=== PATIENT | male | born 1950 | race Caucasian/White ===

== ENCOUNTER → 2019-11-14 10:56 | Outpatient (BNVA) | payer MEDICARE, MEDICAID, SELFPAY | PROVIDERS: Family Provider Internal Medicine; PCP Nurse Practitioner; Visit Provider Specialist | DX: Z48.89 Encounter for other specified surgical aftercare (principal); S82.401A Unspecified fracture of shaft of right fibula, initial encounter for closed fracture; X58.XXXA Exposure to other specified factors, initial encounter | CPT/HCPCS: 73610 ==

== ENCOUNTER → 2020-04-16 14:35 | Outpatient (BNVA) | payer MEDICARE, SELFPAY | PROVIDERS: Family Provider Internal Medicine; PCP Nurse Practitioner; Visit Provider Nurse Practitioner Family | DX: E78.5 Hyperlipidemia, unspecified (principal); I10 Essential (primary) hypertension; Z87.39 Personal history of other diseases of the musculoskeletal system and connective tissue; E11.40 Type 2 diabetes mellitus with diabetic neuropathy, unspecified; E11.65 Type 2 diabetes mellitus with hyperglycemia; Z79.4 Long term (current) use of insulin; E78.2 Mixed hyperlipidemia; M25.571 Pain in right ankle and joints of right foot; G89.29 Other chronic pain | CPT/HCPCS: 80053; 80061; 83036; 84550; 85025 ==

== ENCOUNTER → 2020-07-06 10:01 | Outpatient (BNVA) | payer MEDICARE, MEDICAID, SELFPAY | PROVIDERS: Family Provider Internal Medicine; PCP Nurse Practitioner; Visit Provider Nurse Practitioner | DX: E11.40 Type 2 diabetes mellitus with diabetic neuropathy, unspecified (principal); E11.65 Type 2 diabetes mellitus with hyperglycemia; E78.2 Mixed hyperlipidemia; I10 Essential (primary) hypertension; J30.2 Other seasonal allergic rhinitis; Z79.4 Long term (current) use of insulin; R39.11 Hesitancy of micturition; Z87.39 Personal history of other diseases of the musculoskeletal system and connective tissue | CPT/HCPCS: 80053; 80061; 81003; 83036; 85025 ==

== ENCOUNTER 2020-07-11 07:18 | Outpatient (CLI) | payer MEDICARE, MEDICAID, SELFPAY ==
--- NOTE | 2020-07-11 07:15 | US_ITS ---
WS: [id number] ULTRASOUND RENAL TECHNIQUE: Ultrasound examination of both kidneys. CLINICAL INFORMATION: Hematuria COMPARISON: None. FINDINGS: RIGHT: Right kidney cyst measuring 2.0 cm Right kidney is normal in size and appearance. Echogenicity: Normal. Cortical thickness: 1.7 cm; Normal. Hydronephrosis: None. Perinephric fluid: None. Right kidney measures: 13.2 cm x 7.3 cm x 8.4 cm. LEFT: Left kidney removed. Normal bladder. US/US renal BI with bladder IMPRESSION: 1. Left kidney removed. 2. Right kidney cyst measuring 2.0 x 1.3 x 2.0 cm 3. Normal bladder.
== END 2020-07-11 07:19 | disposition home or self-care (01) ==
LOC: US 07:18
PROVIDERS: PCP Nurse Practitioner; Visit Provider Nurse Practitioner
DX: R31.9 Hematuria, unspecified (principal); Z90.5 Acquired absence of kidney; N28.1 Cyst of kidney, acquired
CPT/HCPCS: 76770; 76857

== ENCOUNTER → 2020-07-23 15:43 | Outpatient (BNVA) | payer MEDICARE, MEDICAID, SELFPAY | PROVIDERS: PCP Nurse Practitioner; Visit Provider Nurse Practitioner Family | DX: R39.15 Urgency of urination (principal); C61 Malignant neoplasm of prostate; R31.0 Gross hematuria | CPT/HCPCS: 80053; 81001; 84153; 88112 ==

== ENCOUNTER 2020-08-08 10:40 | Outpatient (CLI) | payer MEDICARE, MEDICAID, SELFPAY ==
--- NOTE | 2020-08-08 11:17 | CT_ITS ---
WS: [id number] CT ABDOMEN AND PELVIS WITH AND WITHOUT CONTRAST HISTORY: GROSS HEMATURIA TECHNIQUE: Unenhanced 5 mm axial imaging first performed through the abdomen. Post contrast imaging t hrough the abdomen and pelvis. Oral contrast has not been provided. Sagittal and coronal reformats a re submitted. All CT scans at use at least one of these dose optimization tech niques: automated exposure control; mA and/or kV adjustment per patient size (includes targeted exams where dose is matched to clinical indication); or iterative reconstruction. CONTRAST: Visipaque 320; 95 mL IV. DLP: 2364.05 mGycm COMPARISON: 04/20/2016 Lung bases are clear. Normal size heart. Small hiatal hernia. Normal size liver. Mild surface lobulation. No mass. Normal gallbladder. Spleen is top normal size at 12 cm. Mild atrophy and fatty replacement of the pancreas. No adrenal mass. There are numerous varic es near the splenic hilum and around the pancreas. Portal vein appears patent. Caudate lobe is slight ly enlarged also. RIGHT kidney is low normal size at 10.8 cm. Ill-defined low-attenuation focus in the mid RIGHT kidney measures 2.3 cm. Hounsfield units are elevated. There is only very minimal increase in the Hounsfiel d units after injection of the contrast. There are additional subcentimeter too small to characterize hypodensities in the cortex. There is no hydronephrosis or obstruction of the kidney. Prior LEFT nephrectomy. No recurrent mass at the LEFT renal bed. Mild atherosclerosis aorta. Ectatic dilatation RIGHT common iliac artery. No ascites or adenopathy. No GI tract obstruction. Urinary bladder is well distended. There is mild diffuse wall thickening. On the delayed imaging there is a very mild blush-like area of enhancement in the LEFT lateral bladder measuring 2.8 x 1.3 cm. Minimal prominence of the prostate gland. There are innumerable small sclerotic foci within the visualized lumbar and thoracic vertebral bodies and within the ribs and the pelvis. Also sclerotic foci proximal femora. CT/CT abdomen pelvis wo/w [id number] IMPRESSION: 1. Status post LEFT nephrostomy. No recurrent mass or adenopathy in the renal bed. 2. Poorly visualized low-attenuation mass in the RIGHT kidney measures 2.3 cm. Probably representing a complex cyst. Recent ultrasound also demonstrated a cy st. 3. Innumerable sclerotic foci throughout the visualized bones suspicious for m etastatic disease. Consider bone scan imaging follow-up. 4. Seen only on the delayed imaging is an area of blush-like enhancement in th e LEFT posterior urinary bladder. Recommend cystoscopy for evaluation of the bl adder neoplasm. Otherwise mild diffuse bladder wall thickening is probably due to cystitis. 5. Cirrhosis and top normal size spleen.
[2020-08-08] MEDS: iodixanol 320 mg/mL 100mL Btl IV (11:46)
== END 2020-08-08 10:41 | disposition home or self-care (01) ==
LOC: RAD 10:42 → RADWPI 11:16
PROVIDERS: PCP Nurse Practitioner; Visit Provider Nurse Practitioner Family
DX: R31.0 Gross hematuria (principal); N28.89 Other specified disorders of kidney and ureter; K74.69 Other cirrhosis of liver; C61 Malignant neoplasm of prostate
CPT/HCPCS: 74178; 81001; Q9967

== ENCOUNTER 2020-08-17 08:12 | Outpatient (CLI) | payer MEDICARE, MEDICAID, SELFPAY ==
--- NOTE | 2020-08-17 08:21 | NM_ITS ---
WS: [id number] NUCLEAR MEDICINE WHOLE BODY BONE SCAN HISTORY: PROSTATE CANCER COMPARISON: 11/13/[address] 08/08/2020. TECHNIQUE: The patient was injected with 26.1 mCi of Technetium 99m HDP and serial whole-body scintig jaye have been performed with anterior and posterior images. There are numerous tiny foci of increased uptake in the ribs, thoracic and lumbar spines and pelvis. These correspond to the findings on the recent CT of osteoblastic metastatic bone disease. More focal increased uptake in the inferior RIGHT scapula. Very focal intense uptake in the LEFT clavicular hea d. No definite uptake involving the femoral necks or heads. Moderate degenerative changes at the SC joints and glenohumeral joints and ankle joints. NM/NM bone scan whole body* [id number] IMPRESSION: Moderate osteoblastic metastatic bone disease. Most significant involvement thr oughout the spine, ribs and pelvis. Intense uptake in the LEFT clavicular head and inferior RIGHT scapula. Corresponds to the findings seen on the recent CT o f 08/08/2020.
== END 2020-08-17 08:13 | disposition home or self-care (01) ==
LOC: RAD 08:16
PROVIDERS: PCP Nurse Practitioner; Visit Provider Urology
DX: C61 Malignant neoplasm of prostate (principal)
CPT/HCPCS: 78306; A9561

== ENCOUNTER 2020-08-29 09:52 | Outpatient (CLI) | payer MEDICARE, MEDICAID, SELFPAY ==
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
[2020-08-29 15:06] LABS: Basophils % 0.2 %; Eosinophils # 0.1 10^3/uL (0.0-0.8); Eosinophils % 1.8 %; Hematocrit 38.8 % (42.0-52.0); Hemoglobin 12.2 g/dL (11.7-16.6); Lymphocytes # 0.9 10^3/uL (0.8-4.8); Lymphocytes % 19.1 %; Mean Corpuscular HGB Conc 31.4 g/dL (30.0-36.0); Mean Corpuscular Hemoglobin 30.2 pg (28.0-34.0); Mean Platelet Volume 10.9 fL (7.4-10.4); Monocytes # 0.6 10^3/uL (0.2-0.9); Monocytes % 12.7 %; Nucleated Red Blood Cells % 0 %; Platelet Count 146 10^3/cmm (130-400); Red Blood Count 4.04 10^6/uL (4.1-5.3); Red Cell Distribution Width 13.8 % (12.1-15.1); White Blood Count 4.6 10^3/uL (4.0-10.0)
[2020-08-29 15:15] LABS: Alanine Aminotransferase 28 U/L (0-41); Albumin Level 3.2 g/dL (3.5-5.2); Alkaline Phosphatase 293 IU/L (40-130); Anion Gap 12.1 (5-19); Aspartate Amino Transferase 48 U/L (0-40); Blood Urea Nitrogen 17 mg/dL (8-23); Calcium 8.9 mg/dL (8.5-10.5); Carbon Dioxide 30 mmol/L (22-29); Chloride 95 mmol/L (98-107); Globulin 3.6 g/dL (1.3-4.6); Glucose 97 mg/dL (65-115); Osmolality Calculated 275 mOsm/kg (285-295); Potassium 5.1 mmol/L (3.5-5.1); Sodium 132 mmol/L (136-145); Total Bilirubin 0.7 mg/dL (0.15-1.2); Total Protein 6.8 g/dL (6.6-8.7)
== END 2020-08-29 09:53 | disposition home or self-care (01) ==
LOC: ONCMED 09:56
PROVIDERS: PCP Nurse Practitioner; Visit Provider Internal Medicine Medical Oncology
DX: C61 Malignant neoplasm of prostate (principal); C79.51 Secondary malignant neoplasm of bone; D69.6 Thrombocytopenia, unspecified; I10 Essential (primary) hypertension; E78.5 Hyperlipidemia, unspecified; E11.9 Type 2 diabetes mellitus without complications; I25.10 Atherosclerotic heart disease of native coronary artery without angina pectoris; M47.9 Spondylosis, unspecified; E66.9 Obesity, unspecified; R31.9 Hematuria, unspecified; R33.9 Retention of urine, unspecified; Z90.5 Acquired absence of kidney; Z90.49 Acquired absence of other specified parts of digestive tract; Z87.891 Personal history of nicotine dependence; Z95.1 Presence of aortocoronary bypass graft; Z96.0 Presence of urogenital implants; Z87.828 Personal history of other (healed) physical injury and trauma; R09.02 Hypoxemia; R91.8 Other nonspecific abnormal finding of lung field; E04.2 Nontoxic multinodular goiter; R16.2 Hepatomegaly with splenomegaly, not elsewhere classified
CPT/HCPCS: 36415; 71275; 80053; 82565; 84520; 85025; 99215; Q9967

== ENCOUNTER 2020-08-29 12:54 | Outpatient (CLI) | payer MEDICARE, SELFPAY ==
--- NOTE | 2020-08-29 13:04 | CT_ITS ---
WS: [id number] CTA OF THE CHEST WITH PULMONARY EMBOLISM PROTOCOL TECHNIQUE: High-resolution contrast enhanced CTA of the chest with coronal and sagittal reformatted i mages with pulmonary embolism protocol. MIP images are also reviewed. CLINICAL INFORMATION: HYPOXIA, MALIGNANT NEOPLASM OF PROSTATE, THROMBOCYTOPENIA COMPARISON: Bone scan August 17, [address] abdomen pelvis August 08, 2020 DLP: 826.[address] scans at [facility] use at least one of these dose optimization techniques: automat ed exposure control; mA and/or kV adjustment per patient size (includes targeted exams where dose is matched to clinical indication); or iterative reconstruction. FINDINGS: Diffuse blastic metastasis throughout the visualized bony structures as Seen on the recent studies. Proximal main pulmonary arteries are normal. Segmental and subsegmental pulmonary arteries appear pat ent. No filling defects to indicate pulmonary embolus. Normal caliber thoracic aorta. Aortic calcific ation. Coronary calcification. Low-attenuation right thyroid nodules the largest measuring 12 mm. No mediastinal or hilar lymphadenopathy. No axillary lymphadenopathy. Patchy groundglass infiltrates in the bilateral lower lobes, lingula, and both upper lobes. Recommend correlation for viral pneumonitis. No pleural fluid or focal consolidation. Adrenal glands are normal. Hepatomegaly. Cirrhotic configuration to the liver. Splenomegaly. CT/CT angio chest PE protcl [id number] IMPRESSION: 1. No evidence for pulmonary embolus. 2. Hazy groundglass infiltrates within both lungs as described above can be se en with viral pneumonia. Recommend clinical correlation. 3. Small right thyroid nodules largest measuring 12 mm. This can be followed u p with ultrasound. 4. No mediastinal or hilar lymphadenopathy. 5. Hepatomegaly and splenomegaly. Slightly cirrhotic [id number] to the josephine er capsule. 6. Diffuse blastic osseous metastasis throughout the visualized bony structure s and spine compatible with findings seen on the recent bone scan
[2020-08-29 14:00] LABS: Blood Urea Nitrogen 15 mg/dL (8-23)
[2020-08-29] MEDS: iodixanol 320 mg/mL 100mL Btl IV (14:14)
== END 2020-08-29 12:55 | disposition home or self-care (01) ==
LOC: RADWPI 12:58
PROVIDERS: PCP Nurse Practitioner; Visit Provider Internal Medicine Medical Oncology
DX: C61 Malignant neoplasm of prostate (principal); R09.02 Hypoxemia; D69.6 Thrombocytopenia, unspecified; R91.8 Other nonspecific abnormal finding of lung field; E04.2 Nontoxic multinodular goiter; R16.2 Hepatomegaly with splenomegaly, not elsewhere classified
CPT/HCPCS: 71275; 82565; 84520; Q9967

== ENCOUNTER 2020-09-20 05:51 | Outpatient (CLI) | payer MEDICARE, MEDICAID, SELFPAY ==
[2020-09-20 15:31] LABS: Basophils % 0.4 %; Eosinophils # 0.1 10^3/uL (0.0-0.8); Eosinophils % 2.1 %; Hematocrit 37.9 % (42.0-52.0); Hemoglobin 11.9 g/dL (11.7-16.6); Lymphocytes # 0.6 10^3/uL (0.8-4.8); Lymphocytes % 21.1 %; Mean Corpuscular HGB Conc 31.4 g/dL (30.0-36.0); Mean Corpuscular Hemoglobin 30.7 pg (28.0-34.0); Mean Corpuscular Volume 97.9 fL (80-94); Mean Platelet Volume 12.4 fL (7.4-10.4); Monocytes # 0.3 10^3/uL (0.2-0.9); Monocytes % 10.4 %; Neutrophils # 1.84 10^3/uL (1.8-7.7); Neutrophils % 65.6 %; Nucleated Red Blood Cells % 0 %; Platelet Count 38 10^3/cmm (130-400); Red Blood Count 3.87 10^6/uL (4.1-5.3); Red Cell Distribution Width 14.6 % (12.1-15.1); White Blood Count 2.8 10^3/uL (4.0-10.0)
[2020-09-20] MEDS: lidocaine 1% INJ 20 mL INJECTION (15:35)
[2020-09-20] MEDS: goserelin acetate 10.8 mg Implant IM (15:35)
[2020-09-20 15:51] LABS: Alanine Aminotransferase 31 U/L (0-41); Albumin Level 3.5 g/dL (3.5-5.2); Alkaline Phosphatase 278 IU/L (40-130); Anion Gap 10.6 (5-19); Aspartate Amino Transferase 36 U/L (0-40); Blood Urea Nitrogen 14 mg/dL (8-23); Calcium 9.9 mg/dL (8.5-10.5); Carbon Dioxide 32 mmol/L (22-29); Chloride 98 mmol/L (98-107); Globulin 3.3 g/dL (1.3-4.6); Glucose 144 mg/dL (65-115); Osmolality Calculated 285 mOsm/kg (285-295); Potassium 4.6 mmol/L (3.5-5.1); Sodium 136 mmol/L (136-145); Total Bilirubin 0.5 mg/dL (0.15-1.2); Total Protein 6.8 g/dL (6.6-8.7)
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
== END 2020-09-20 05:52 | disposition home or self-care (01) ==
LOC: ONCMED 05:53
PROVIDERS: PCP Nurse Practitioner; Visit Provider Nurse Practitioner
DX: C61 Malignant neoplasm of prostate (principal); C79.51 Secondary malignant neoplasm of bone; D69.6 Thrombocytopenia, unspecified; K74.60 Unspecified cirrhosis of liver; D73.1 Hypersplenism; R97.21 Rising PSA following treatment for malignant neoplasm of prostate; I10 Essential (primary) hypertension; E78.5 Hyperlipidemia, unspecified; E11.9 Type 2 diabetes mellitus without complications; I25.10 Atherosclerotic heart disease of native coronary artery without angina pectoris; E66.9 Obesity, unspecified; M47.9 Spondylosis, unspecified; Z90.5 Acquired absence of kidney; Z79.818 Long term (current) use of other agents affecting estrogen receptors and estrogen levels; Z92.3 Personal history of irradiation
CPT/HCPCS: 80053; 84153; 85025; 96372; 96402; 99214; J9202

== ENCOUNTER → 2020-10-01 08:59 | Outpatient (BNVA) | payer MEDICARE, MEDICAID, SELFPAY | PROVIDERS: PCP Nurse Practitioner; Visit Provider Nurse Practitioner | DX: E11.65 Type 2 diabetes mellitus with hyperglycemia (principal); Z79.4 Long term (current) use of insulin; I10 Essential (primary) hypertension; E78.2 Mixed hyperlipidemia | CPT/HCPCS: 80053; 80061; 83036; 85025 ==

== ENCOUNTER 2020-10-18 09:01 | Outpatient (CLI) | payer MEDICARE, MEDICAID, SELFPAY ==
[2020-10-18 09:45] LABS: Basophils % 0.8 %; Eosinophils # 0.1 10^3/uL (0.0-0.8); Eosinophils % 2.4 %; Hemoglobin 11.4 g/dL (11.7-16.6); Lymphocytes % 25.8 %; Mean Corpuscular HGB Conc 31.7 g/dL (30.0-36.0); Mean Corpuscular Hemoglobin 30.8 pg (28.0-34.0); Mean Corpuscular Volume 97.3 fL (80-94); Mean Platelet Volume 11.8 fL (7.4-10.4); Monocytes # 0.4 10^3/uL (0.2-0.9); Monocytes % 11.8 %; Neutrophils # 2.19 10^3/uL (1.8-7.7); Neutrophils % 58.9 %; Nucleated Red Blood Cells % 0 %; Platelet Count 63 10^3/cmm (130-400); Red Cell Distribution Width 14.8 % (12.1-15.1); White Blood Count 3.7 10^3/uL (4.0-10.0)
[2020-10-18 10:03] LABS: Alanine Aminotransferase 34 U/L (0-41); Albumin Level 3.3 g/dL (3.5-5.2); Alkaline Phosphatase 248 IU/L (40-130); Anion Gap 13.7 (5-19); Aspartate Amino Transferase 40 U/L (0-40); Blood Urea Nitrogen 16 mg/dL (8-23); Calcium 9.6 mg/dL (8.5-10.5); Carbon Dioxide 23 mmol/L (22-29); Chloride 102 mmol/L (98-107); Globulin 3.2 g/dL (1.3-4.6); Glucose 106 mg/dL (65-115); Osmolality Calculated 280 mOsm/kg (285-295); Potassium 4.7 mmol/L (3.5-5.1); Sodium 134 mmol/L (136-145); Total Bilirubin 0.5 mg/dL (0.15-1.2); Total Protein 6.5 g/dL (6.6-8.7)
== END 2020-10-18 09:02 | disposition home or self-care (01) ==
LOC: ONCMED 09:04
PROVIDERS: PCP Nurse Practitioner; Visit Provider Nurse Practitioner
DX: C61 Malignant neoplasm of prostate (principal); C79.51 Secondary malignant neoplasm of bone; D69.6 Thrombocytopenia, unspecified
CPT/HCPCS: 80053; 84153; 85025

== ENCOUNTER 2020-10-22 05:49 | Outpatient (CLI) | payer MEDICARE, MEDICAID, SELFPAY ==
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
== END 2020-10-22 05:50 | disposition home or self-care (01) ==
LOC: ONCMED 05:51
PROVIDERS: PCP Nurse Practitioner; Visit Provider Nurse Practitioner
DX: C61 Malignant neoplasm of prostate (principal); R33.9 Retention of urine, unspecified; Z96.0 Presence of urogenital implants; Z87.891 Personal history of nicotine dependence; I10 Essential (primary) hypertension; E78.5 Hyperlipidemia, unspecified; D69.6 Thrombocytopenia, unspecified; D73.1 Hypersplenism; K74.60 Unspecified cirrhosis of liver; E11.42 Type 2 diabetes mellitus with diabetic polyneuropathy; I25.10 Atherosclerotic heart disease of native coronary artery without angina pectoris; M47.9 Spondylosis, unspecified; Z79.818 Long term (current) use of other agents affecting estrogen receptors and estrogen levels; Z79.899 Other long term (current) drug therapy; Z90.5 Acquired absence of kidney; Z87.39 Personal history of other diseases of the musculoskeletal system and connective tissue; Z87.828 Personal history of other (healed) physical injury and trauma; Z95.5 Presence of coronary angioplasty implant and graft
CPT/HCPCS: 99214

== ENCOUNTER → 2020-11-05 08:50 | Outpatient (BNVA) | payer MEDICARE, MEDICAID, SELFPAY | PROVIDERS: PCP Nurse Practitioner; Visit Provider Internal Medicine Medical Oncology | DX: C79.51 Secondary malignant neoplasm of bone (principal); D69.59 Other secondary thrombocytopenia; C61 Malignant neoplasm of prostate | CPT/HCPCS: 80053; 84153; 85025 ==

== ENCOUNTER 2020-11-14 08:57 | Outpatient (CLI) | payer MEDICARE, MEDICAID, SELFPAY ==
--- NOTE | 2020-11-17 14:28 | ONC FU_ITS ---
Dr. Paiz Patient Follow-Up Note Patient: Rj Robbins Unit #: [id number]: 1950 Dicatated By: Ronen Paiz M.D.Date of Visit:Nov 14, 2020 Onc Med Follow-up/Prog Note Chief Complaint: Prostate cancer. History of Present Illness: This is a 70 year-old man with [place] score 7 prostatic adenocarcinoma, stage IIA (T2a, N0, M0) at initial diagnosis in 2008, but with subsequent progression to stage IVB (M1b). In 2008 he was found to have prostate cancer. By clinical evaluation he had stage IIA disease. He was given androgen deprivation therapy together with definitive radiation, which he completed in May 2009 to a total dose of 7560 cGy. I was not able to verify the duration of the androgen deprivation. I had seen him initially in March 2016 in regard to mild thrombocytopenia. I was not able to determine a specific cause for it. As he was not overtly symptomatic with it, had just recommended observation/expectant management. During follow-up he was noted to have a rising PSA level. As of his follow-up visit in October 2017 it had increased to 12.00 ng/mL. At that point I had recommended restaging with CT abdomen/pelvis and bone scan, but those studies were never completed, and he was then lost to follow-up. In July 2020 he had follow-up at Dr. Callahan's office with new onset of hematuria. He had subsequently developed urinary retention, requiring placement of indwelling Robles catheter. His PSA level was noted to have further increased to 19.340 ng/mL. CT abdomen/pelvis on 08/08/2020 showed evidence of previous left nephrectomy with poorly visualized low-attenuation mass in the right kidney measuring 2.3 cm. This was thought to most likely represent a complex cyst. Innumerable sclerotic foci were noted throughout the visualized bones suspicious for metastatic disease. An area of blush-like enhancement was noted in the left posterior urinary bladder. There was mild surface lobulation of the liver, consistent with cirrhosis. The spleen was noted to be at top normal size at 12 cm. On his outpatient cystoscopy the prostate did not appear overtly enlarged. His bladder neck was high and it was noted to be very tight. The bladder was noted to be heavily trabeculated with cellule formation and high-pressure configuration. Further evaluation with bone scan on 08/17/2020 showed moderate osteoblastic metastatic bone disease with the most significant involvement noted throughout the spine, ribs, and pelvis. There was also intense uptake in the left clavicular head and inferior right scapula. I had seen him initially on 08/29/2020. With clinical evidence of metastatic prostate cancer, androgen deprivation therapy was recommended, and he started bicalutamide 50 mg daily. He then returned on 09/20/2020 for his initial injection of Zoladex. At that point his PSA level had declined to 4.130 ng/mL. Subsequent to that visit, his antiandrogen therapy was transitioned from bicalutamide to enzalutamide 160 mg daily. His other medical illnesses include hypertension, hyperlipidemia, type II diabetes, and coronary artery disease. He also has degenerative arthritis/degenerative disease of the spine and gout. He has a previous history of chewing tobacco, but he is a nonsmoker. He has had at least moderate alcohol use, but he quit drinking more than 5 years ago. INTERIM HISTORY: He is seen for a follow-up visit. He has been feeling good generally. Thus far he seems to be tolerating the enzalutamide with no adverse effects. He has pretty good energy, and he is able to do light work. ECOG score is 1. Appetite is good. He has not had fever. He has had night sweating a few times. He really does not complain of having hot flashes. He says his nose runs a lot. He does not complain of shortness of breath, cough, or chest pain. He had one episode of diarrhea. He has no other GI complaints. He says his bladder function has improved significantly and he is now having to use his catheter just occasionally. He has chronic back pain and he sometimes has pain in his right hip. He complains of having numbness in his right foot. Medications: Allopurinol 1 (300 mg) Tablet Oral daily, Atorvastatin Calcium 1 Tablet (of 40 mg) Oral daily, Byetta 5 MCG Pen (5 mcg/0.02mL) Subcutaneous b.i.d., Camphor (3.1 %) Cream Topical t.i.d. PRN, Cetirizine HCl 1 Tablet (of 10 mg) Oral daily PRN, Cymbalta 1 (20 mg) Capsule Delayed Release Particles Oral b.i.d., Flomax 1 (0.4 mg) Capsule Oral at bedtime, Furosemide 0.5 Tablet (of 20 mg) Oral daily on Every Other Day, Icosapent Ethyl 1 Tablet (of 1 g) Capsule Oral b.i.d., Imdur 1 (60 mg) Tablet SR 24 HR Oral b.i.d., Levemir 70 Units (of 100 Units/mL) Subcutaneous daily, Lisinopril 1 (10 mg) Tablet Oral b.i.d., Metoprolol Tartrate 1 (100 mg) Tablet Oral b.i.d., Nitrostat 1 (0.4 mg) Tablet, sublingual Sublingual PRN, oxyCODONE HCl 1 Tablet (of 5 mg) Oral q 8 hours PRN, Tamsulosin HCl 1 Tablet (of 0.4 mg) Capsule Oral b.i.d. Allergies: Aldactazide and Ibuprofen. Vital Signs: Performed on Nov 14, 2020 09:18 Height - 73.00 in Weight - 273.6 lbs (LOW) BSA - 2.46 sq.m BMI - 36.10 (HIGH) Temperature - 97.2 F (LOW) Pulse - 85 /min Respiration - 18 /min BP - 142/83 mm(hg) (HIGH) O2 Sat - 93 % (LOW) Pain - 2 Physical Examination: Constitutional - He looks pretty good generally, though he does have somewhat limited mobility, Eyes - Sclerae nonicteric. Conjunctivae clear, ENMT - No lesions noted in the oral cavity, Hematologic/Lymphatic - No cervical, clavicular, or axillary adenopathy, Respiratory - Lungs are clear with diminished air movement bilaterally, Cardiovascular - Heart rhythm is regular. There is no murmur, gallop, or rub noted, Abdomen - Moderately distended. Liver and spleen are not enlarged. There is no abdominal mass or ascites noted and there is no inguinal adenopathy, Extremities - Mild edema, Neurologic - No focal neurologic deficits noted. Lab/Imaging: Test performed on Nov 05, 2020 08:50 Glucose 270 mg/dL BUN 16 mg/dL Creatinine 1.0 mg/dL Cr Clearance (Est) 118.75 mL/min Sodium 140 mmol/L Potassium 4.5 mmol/L Chloride 98 mmol/L CO2 32 mmol/L Calcium 9.5 mg/dL Protein, Total 6.3 g/dL Albumin 3.6 g/dL Globulin 2.7 g/dL Bilirubin, Total 0.5 mg/dL Alkaline Phosphatase 213 IU/L AST (SGOT) 36 IU/L ALT (SGPT) 26 IU/L WBC 3.1 10^9/L RBC 3.82 10^12/L HGB 11.9 g/dL HCT 37.4 % MCV 97.9 fl MCH 312 pg MCHC 31.8 g/dL RDW 14.6 % Platelet Count 65 10^9/L MPV 11.4 fL Neutrophils (Gran) 1.84 10^9/L Lymphocytes 0.8 10^9/L Monocytes 0.4 10^9/L Eosinophils 0.1 10^9/L Basophils 0.0 10^9/L Manual Lymphocytes 25.8 % Manual Monocytes 11.6 % Manual Eosinophils 2.6 % Manual Basophils 0.6 % Historic Problem List: 1. Prostatic adenocarcinoma, [place] score 7, stage IIA at initial diagnosis in 2008. At that time he underwent definitive radiation in combination with short-term androgen deprivation therapy. 2. He was found to have rising PSA level as far back as October 2017. As of August 2020 he was found to have stage IVB disease (M1 b) with CT and bone scan evidence of osteoblastic bony metastatic disease. He also had urinary retention, requiring indwelling Robles catheter. 3. He has fairly longstanding mild to moderately severe thrombocytopenia. At this point it would appear to be most likely due to cirrhosis/hypersplenism. 4. Hypertension. 5. Hyperlipidemia. 6. Type II diabetes. 7. Coronary artery disease with previous angioplasty/stent placement. 8. Obesity. 9. Degenerative arthritis/degenerative disease of the spine. 10. History of gout. 11. He is status post left nephrectomy for traumatic injury. Problems Addressed with this Encounter and Plan: 1. Prostatic adenocarcinoma, [place] score 7, stage IIA at initial diagnosis in 2008. At that time he underwent definitive radiation in combination with short-term androgen deprivation therapy. In August 2020 he was found to have stage IVB disease (M1 b) with CT and bone scan evidence of osteoblastic bony metastatic disease. He began androgen deprivation therapy with bicalutamide and Zoladex. The antiandrogen was subsequently transitioned to enzalutamide. Thus far he has been tolerating the treatment very well, and he does appear to be showing significant response both by PSA level and by clinical evaluation. As such, he will be given Zoladex 10.8 mg today and he will continue enzalutamide at 160 mg daily. He will be scheduled for a follow-up visit in 3 months. 2. Mild to moderately severe thrombocytopenia. It appears to be fairly longstanding and most likely due to cirrhosis/hypersplenism. It can be followed expectantly as long as the platelet count remains stable. Signed By: Ronen Paiz M.D. <<Signature on File>>
== END 2020-11-14 08:58 | disposition home or self-care (01) ==
LOC: ONCMED 09:02
PROVIDERS: PCP Nurse Practitioner; Visit Provider Internal Medicine Medical Oncology
DX: C61 Malignant neoplasm of prostate (principal); C79.51 Secondary malignant neoplasm of bone; R97.20 Elevated prostate specific antigen [PSA]; D69.6 Thrombocytopenia, unspecified; K74.60 Unspecified cirrhosis of liver; D73.1 Hypersplenism; I10 Essential (primary) hypertension; E78.5 Hyperlipidemia, unspecified; E11.59 Type 2 diabetes mellitus with other circulatory complications; I25.10 Atherosclerotic heart disease of native coronary artery without angina pectoris; Z95.5 Presence of coronary angioplasty implant and graft; E66.9 Obesity, unspecified; M47.9 Spondylosis, unspecified; M10.9 Gout, unspecified; Z90.5 Acquired absence of kidney; Z79.899 Other long term (current) drug therapy
CPT/HCPCS: 99214

== ENCOUNTER → 2020-11-15 09:14 | Outpatient (BNVA) | payer MEDICARE, MEDICAID, SELFPAY | PROVIDERS: PCP Nurse Practitioner; Visit Provider Nurse Practitioner | DX: C61 Malignant neoplasm of prostate (principal); C79.51 Secondary malignant neoplasm of bone; D69.59 Other secondary thrombocytopenia | CPT/HCPCS: 80053; 85025 ==

== ENCOUNTER 2020-12-24 10:52 | Outpatient (CLI) | payer MEDICARE, MEDICAID, SELFPAY ==
[2020-12-24 12:23] LABS: Testosterone Total 33.8 ng/dL (193-740)
[2020-12-24 13:56] LABS: Anion Gap 16.2 (5-19); Blood Urea Nitrogen 13 mg/dL (8-23); Calcium 9.9 mg/dL (8.5-10.5); Carbon Dioxide 30 mmol/L (22-29); Chloride 96 mmol/L (98-107); Glucose 243 mg/dL (65-115); Osmolality Calculated 294 mOsm/kg (285-295); Potassium 4.2 mmol/L (3.5-5.1); Sodium 138 mmol/L (136-145)
[2020-12-24] MEDS: lidocaine 1% INJ 20 mL INJECTION (14:10)
[2020-12-24] MEDS: denosumab 120 mg SDV SUBCUT (14:31)
[2020-12-24] MEDS: goserelin acetate 10.8 mg Implant IM (14:33)
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
== END 2020-12-24 10:53 | disposition home or self-care (01) ==
PROVIDERS: PCP Nurse Practitioner; Visit Provider Nurse Practitioner
DX: Z51.12 Encounter for antineoplastic immunotherapy (principal); C61 Malignant neoplasm of prostate; C79.51 Secondary malignant neoplasm of bone; D69.6 Thrombocytopenia, unspecified; K74.60 Unspecified cirrhosis of liver; D73.1 Hypersplenism; Z79.818 Long term (current) use of other agents affecting estrogen receptors and estrogen levels; Z79.899 Other long term (current) drug therapy
CPT/HCPCS: 80048; 84153; 84403; 96372; 96402; 99215; J0897; J9202

== ENCOUNTER → 2021-01-29 09:57 | Outpatient (BNVA) | payer MEDICARE, MEDICAID, SELFPAY | PROVIDERS: PCP Nurse Practitioner; Visit Provider Nurse Practitioner | DX: E11.65 Type 2 diabetes mellitus with hyperglycemia (principal); Z79.4 Long term (current) use of insulin; E78.2 Mixed hyperlipidemia; Z87.39 Personal history of other diseases of the musculoskeletal system and connective tissue; I10 Essential (primary) hypertension; G47.00 Insomnia, unspecified; E11.40 Type 2 diabetes mellitus with diabetic neuropathy, unspecified; J30.2 Other seasonal allergic rhinitis | CPT/HCPCS: 80053; 80061; 83036 ==

== ENCOUNTER 2021-02-18 10:10 | Outpatient (CLI) | payer MEDICARE, MEDICAID, SELFPAY ==
[2021-02-18 10:37] LABS: Basophils % 0.5 %; Eosinophils # 0.1 10^3/uL (0.0-0.8); Eosinophils % 1.2 %; Hematocrit 39.4 % (42.0-52.0); Hemoglobin 12.8 g/dL (11.7-16.6); Lymphocytes # 1.2 10^3/uL (0.8-4.8); Lymphocytes % 27.6 %; Mean Corpuscular HGB Conc 32.5 g/dL (30.0-36.0); Mean Corpuscular Hemoglobin 31.8 pg (28.0-34.0); Mean Platelet Volume 10.4 fL (7.4-10.4); Monocytes # 0.5 10^3/uL (0.2-0.9); Monocytes % 10.7 %; Neutrophils # 2.51 10^3/uL (1.8-7.7); Neutrophils % 59.8 %; Nucleated Red Blood Cells % 0 %; Platelet Count 89 10^3/cmm (130-400); Red Blood Count 4.02 10^6/uL (4.1-5.3); Red Cell Distribution Width 13.3 % (12.1-15.1); White Blood Count 4.2 10^3/uL (4.0-10.0)
[2021-02-18 10:52] LABS: Alanine Aminotransferase 20 U/L (0-41); Albumin Level 3.7 g/dL (3.5-5.2); Alkaline Phosphatase 121 IU/L (40-130); Anion Gap 11.7 (5-19); Aspartate Amino Transferase 35 U/L (0-40); Blood Urea Nitrogen 16 mg/dL (8-23); Calcium 8.5 mg/dL (8.5-10.5); Carbon Dioxide 31 mmol/L (22-29); Chloride 100 mmol/L (98-107); Globulin 2.9 g/dL (1.3-4.6); Glucose 173 mg/dL (65-115); Osmolality Calculated 291 mOsm/kg (285-295); Potassium 4.7 mmol/L (3.5-5.1); Sodium 138 mmol/L (136-145); Total Bilirubin 0.7 mg/dL (0.15-1.2); Total Protein 6.6 g/dL (6.6-8.7)
== END 2021-02-18 10:11 | disposition home or self-care (01) ==
LOC: ONCMED 10:15
PROVIDERS: PCP Nurse Practitioner; Visit Provider Nurse Practitioner
DX: C61 Malignant neoplasm of prostate (principal); C79.51 Secondary malignant neoplasm of bone; D69.6 Thrombocytopenia, unspecified
CPT/HCPCS: 80053; 85025

== ENCOUNTER 2021-02-25 06:23 | Outpatient (CLI) | payer MEDICARE, MEDICAID, SELFPAY ==
[2021-02-25] MEDS: denosumab 120 mg SDV SUBCUT (09:05)
== END 2021-02-25 06:24 | disposition home or self-care (01) ==
LOC: ONCMED 06:27
PROVIDERS: PCP Nurse Practitioner; Visit Provider Internal Medicine Medical Oncology
DX: Z51.11 Encounter for antineoplastic chemotherapy (principal); C61 Malignant neoplasm of prostate; C79.51 Secondary malignant neoplasm of bone; D69.6 Thrombocytopenia, unspecified; Z79.899 Other long term (current) drug therapy
CPT/HCPCS: 96372; J0897

== ENCOUNTER 2021-03-26 10:50 | Outpatient (CLI) | payer MEDICARE, MEDICAID, SELFPAY ==
[2021-03-26 11:36] LABS: Basophils % 0.5 %; Eosinophils # 0.1 10^3/uL (0.0-0.8); Eosinophils % 1.6 %; Hematocrit 38.3 % (42.0-52.0); Hemoglobin 12.6 g/dL (11.7-16.6); Lymphocytes # 1.1 10^3/uL (0.8-4.8); Lymphocytes % 29.2 %; Mean Corpuscular HGB Conc 32.9 g/dL (30.0-36.0); Mean Corpuscular Hemoglobin 31.8 pg (28.0-34.0); Mean Corpuscular Volume 96.7 fL (80-94); Mean Platelet Volume 10.5 fL (7.4-10.4); Monocytes # 0.5 10^3/uL (0.2-0.9); Monocytes % 11.7 %; Neutrophils # 2.17 10^3/uL (1.8-7.7); Neutrophils % 56.7 %; Nucleated Red Blood Cells % 0 %; Platelet Count 70 10^3/cmm (130-400); Red Blood Count 3.96 10^6/uL (4.1-5.3); Red Cell Distribution Width 12.9 % (12.1-15.1); White Blood Count 3.8 10^3/uL (4.0-10.0)
[2021-03-26 12:27] LABS: Testosterone Total 23.6 ng/dL (193-740)
[2021-03-26 12:38] LABS: Alanine Aminotransferase 17 U/L (0-41); Albumin Level 3.8 g/dL (3.5-5.2); Alkaline Phosphatase 105 IU/L (40-130); Anion Gap 16.4 (5-19); Aspartate Amino Transferase 24 U/L (0-40); Blood Urea Nitrogen 21 mg/dL (8-23); Calcium 9.2 mg/dL (8.5-10.5); Carbon Dioxide 25 mmol/L (22-29); Chloride 101 mmol/L (98-107); Globulin 2.8 g/dL (1.3-4.6); Glucose 163 mg/dL (65-115); Osmolality Calculated 293 mOsm/kg (285-295); Potassium 4.4 mmol/L (3.5-5.1); Sodium 138 mmol/L (136-145); Total Bilirubin 0.7 mg/dL (0.15-1.2); Total Protein 6.6 g/dL (6.6-8.7)
[2021-03-26] MEDS: lidocaine 1% INJ 20 mL INJECTION (14:10)
[2021-03-26] MEDS: goserelin acetate 10.8 mg Implant SUBCUT (14:25)
[2021-03-26] MEDS: denosumab 120 mg SDV SUBCUT (14:27)
--- NOTE | 2021-03-30 11:39 | ONC FU_ITS ---
Dr. Piaz Patient Follow-Up Note Patient: Rj Robbins Unit #: [id number]: [id number] Dicatated By: Ronen Paiz M.D.Date of Visit:March 26, 2021 Onc Med Follow-up/Prog Note Chief Complaint: Prostate cancer. History of Present Illness: This is a 71 year-old man with Martha score 7 prostatic adenocarcinoma, stage IIA (T2a, N0, M0) at initial diagnosis in 2008, but with subsequent progression to stage IVB (M1b). In 2008 he was found to have prostate cancer. By clinical evaluation he had stage IIA disease. He was given androgen deprivation therapy together with definitive radiation, which he completed in May 2009 to a total dose of 7560 cGy. I was not able to verify the duration of the androgen deprivation. I had seen him initially in March 2016 in regard to mild thrombocytopenia. I was not able to determine a specific cause for it. As he was not overtly symptomatic with it, had just recommended observation/expectant management. During follow-up he was noted to have a rising PSA level. As of his follow-up visit in October 2017 it had increased to 12.00 ng/mL. At that point I had recommended restaging with CT abdomen/pelvis and bone scan, but those studies were never completed, and he was then lost to follow-up. In July 2020 he had follow-up at Dr. Callahan's office with new onset of hematuria. He had subsequently developed urinary retention, requiring placement of indwelling Robles catheter. His PSA level was noted to have further increased to 19.340 ng/mL. CT abdomen/pelvis on 08/08/2020 showed evidence of previous left nephrectomy with poorly visualized low-attenuation mass in the right kidney measuring 2.3 cm. This was thought to most likely represent a complex cyst. Innumerable sclerotic foci were noted throughout the visualized bones suspicious for metastatic disease. An area of blush-like enhancement was noted in the left posterior urinary bladder. There was mild surface lobulation of the liver, consistent with cirrhosis. The spleen was noted to be at top normal size at 12 cm. On his outpatient cystoscopy the prostate did not appear overtly enlarged. His bladder neck was high and it was noted to be very tight. The bladder was noted to be heavily trabeculated with cellule formation and high-pressure configuration. Further evaluation with bone scan on 08/17/2020 showed moderate osteoblastic metastatic bone disease with the most significant involvement noted throughout the spine, ribs, and pelvis. There was also intense uptake in the left clavicular head and inferior right scapula. I had seen him initially on 08/29/2020. With clinical evidence of metastatic prostate cancer, androgen deprivation therapy was recommended, and he started bicalutamide 50 mg daily. He then returned on 09/20/2020 for his initial injection of Zoladex. At that point his PSA level had declined to 4.130 ng/mL. Subsequent to that visit, his antiandrogen therapy was transitioned from bicalutamide to enzalutamide 160 mg daily. He then continued androgen deprivation therapy with Zoladex every 3 months, and during follow-up there was further gradual decline in the PSA level. As of 12/24/2020 it had decreased to 1.510 ng/mL. His other medical illnesses include hypertension, hyperlipidemia, type II diabetes, and coronary artery disease. He also has degenerative arthritis/degenerative disease of the spine and gout. He has a previous history of chewing tobacco, but he is a nonsmoker. He has had at least moderate alcohol use, but he quit drinking more than 5 years ago. INTERIM HISTORY: He is seen for a follow-up visit. He has been feeling fairly good, though he does have some generalized weakness and limited mobility. He is able to do some light work. ECOG score is 1. He has good appetite. He has not had fever or night sweats. He has just occasional hot flashes, and not very much. He complains that his nose runs like crazy. He has a little bit of cough. He has just occasional shortness of breath. He does not complain of chest pain. He has had diarrhea a few times, but lasting only 1 or 2 days. He has no other GI complaints. He says his bladder function is great now. He has chronic back pain, he also has pain in his fingers and in his right ankle. He does not complain of headache. He occasionally has dizziness. He has some numbness/tingling in the right foot. Medications: Allopurinol 1 (300 mg) Tablet Oral daily, Atorvastatin Calcium 1 Tablet (of 40 mg) Oral daily, Byetta 5 MCG Pen (5 mcg/0.02mL) Subcutaneous b.i.d., Camphor (3.1 %) Cream Topical t.i.d. PRN, Cetirizine HCl 1 Tablet (of 10 mg) Oral daily PRN, Cymbalta 1 (20 mg) Capsule Delayed Release Particles Oral b.i.d., Flomax 1 (0.4 mg) Capsule Oral b.i.d., Furosemide 0.5 Tablet (of 20 mg) Oral daily on Every Other Day, Icosapent Ethyl 1 Tablet (of 1 g) Capsule Oral b.i.d., Imdur 1 (60 mg) Tablet SR 24 HR Oral b.i.d., Levemir 70 Units (of 100 Units/mL) Subcutaneous daily, Lisinopril 1 (10 mg) Tablet Oral b.i.d., Metoprolol Tartrate 1 (100 mg) Tablet Oral b.i.d., Nitrostat 1 (0.4 mg) Tablet, sublingual Sublingual PRN, oxyCODONE HCl 1 Tablet (of 5 mg) Oral q 8 hours PRN Allergies: Aldactazide and Ibuprofen. Vital Signs: Performed on March 26, 2021 13:47 Height - 73.00 in Weight - 275 lbs (LOW) BSA - 2.46 sq.m BMI - 36.28 (HIGH) Temperature - 97.5 F (LOW) Pulse - 73 /min Respiration - 18 /min BP - 144/82 mm(hg) (HIGH) O2 Sat - 98 % Pain - 0 Fatigue - 4 Physical Examination: Constitutional - He appears somewhat weak generally, and he has limited mobility, Eyes - Sclerae nonicteric. Conjunctivae clear, ENMT - No lesions noted in the oral cavity, Hematologic/Lymphatic - No cervical, clavicular, or axillary adenopathy, Respiratory - Lungs are clear with diminished air movement bilaterally, Cardiovascular - Heart rhythm is regular. There is no murmur, gallop, or rub noted, Abdomen - Moderately distended. Liver and spleen are not enlarged. There is no abdominal mass or ascites noted and there is no inguinal adenopathy, Extremities - Mild edema, Neurologic - No focal neurologic deficits noted. Lab/Imaging: Test performed on March 26, 2021 11:20 Sodium 138 mmol/L Testosterone, Total 23.6 ng/dL Potassium 4.4 mmol/L Chloride 101 mmol/L CO2 25 mmol/L Anion Gap 16.4 BUN 21 mg/dL Creatinine 0.6 mg/dL Cr Clearance (Est) 193.46 mL/min Glucose 163 mg/dL Osmolality - Calculated 293 mOsm/kg Calcium 9.2 mg/dL Protein, Total 6.6 g/dL Albumin 3.8 g/dL Globulin 2.8 g/dL Bilirubin, Total 0.7 mg/dL ALT (SGPT) 17 U/L AST (SGOT) 24 U/L Alkaline Phosphatase 105 IU/L WBC 3.8 10 3/uL RBC 3.96 10 6/uL HGB 12.6 g/dL HCT 38.3 % MCV 96.7 fL MCH 31.8 pg MCHC 32.9 g/dL RDW 12.9 % Platelet Count 70 10 3/cmm MPV 10.5 fL Neutrophils 2.17 10 3/uL Lymphocytes 1.1 10 3/uL Monocytes 0.5 10 3/uL Eosinophils 0.1 10 3/uL Basophils 0.0 10 3/uL Neutrophil % 56.7 % Lymphocyte % 29.2 % Monocyte % 11.7 % Eosinophil % 1.6 % Basophils % 0.5 % NRBC % 0 % PSA 1.200 ng/mL Problem List: 1. Prostatic adenocarcinoma, Martha score 7, stage IIA at initial diagnosis in 2008. At that time he underwent definitive radiation in combination with short-term androgen deprivation therapy. 2. He was found to have rising PSA level as far back as October 2017. As of August 2020 he was found to have stage IVB disease (M1 b) with CT and bone scan evidence of osteoblastic bony metastatic disease. He also had urinary retention, requiring indwelling Robles catheter. 3. He has fairly longstanding mild to moderately severe thrombocytopenia. At this point it would appear to be most likely due to cirrhosis/hypersplenism. 4. Hypertension. 5. Hyperlipidemia. 6. Type II diabetes. 7. Coronary artery disease with previous angioplasty/stent placement. 8. Obesity. 9. Degenerative arthritis/degenerative disease of the spine. 10. History of gout. 11. He is status post left nephrectomy for traumatic injury. Problems Addressed with this Encounter and Plan: 1. Patient with prostatic adenocarcinoma, Martha score 7, stage IIA at initial diagnosis in 2008. At that time he underwent definitive radiation in combination with short-term androgen deprivation therapy. In August 2020 he was found to have stage IVB disease (M1 b) with CT and bone scan evidence of osteoblastic bony metastatic disease. He began androgen deprivation therapy with bicalutamide and Zoladex. The antiandrogen was subsequently transitioned to enzalutamide. During follow-up he has tolerated the treatment very well, and he has had a good response by PSA level, currently down to 1.200 ng/mL. He will be given Zoladex 10.8 mg today and he will continue enzalutamide at 160 mg daily. He will be scheduled for a follow-up visit in 3 months. 2. He has metastatic bone involvement, and he also has started treatment with denosumab, which he has tolerated well. He will be given denosumab 120 mg by subcutaneous injection today, and those will be continued monthly. 3. He has mild to moderately severe thrombocytopenia. It appears to be fairly longstanding and most likely due to cirrhosis/hypersplenism. It can be followed expectantly as long as the platelet count remains stable. Signed By: Ronen Paiz M.D. <<Signature on File>>
== END 2021-03-26 10:51 | disposition home or self-care (01) ==
PROVIDERS: PCP Nurse Practitioner; Visit Provider Internal Medicine Medical Oncology
DX: Z51.11 Encounter for antineoplastic chemotherapy (principal); C61 Malignant neoplasm of prostate; C79.51 Secondary malignant neoplasm of bone; R97.20 Elevated prostate specific antigen [PSA]; I10 Essential (primary) hypertension; E78.5 Hyperlipidemia, unspecified; E11.59 Type 2 diabetes mellitus with other circulatory complications; I25.10 Atherosclerotic heart disease of native coronary artery without angina pectoris; Z95.5 Presence of coronary angioplasty implant and graft; E66.9 Obesity, unspecified; M47.9 Spondylosis, unspecified; M10.9 Gout, unspecified; Z90.5 Acquired absence of kidney; Z79.818 Long term (current) use of other agents affecting estrogen receptors and estrogen levels
CPT/HCPCS: 36415; 80053; 84153; 84403; 85025; 96372; 96402; 99214; J0897; J9202

== ENCOUNTER 2021-04-25 13:56 | Outpatient (CLI) | payer MEDICARE, MEDICAID, SELFPAY ==
[2021-04-25] MEDS: denosumab 120 mg SDV SUBCUT (15:00)
== END 2021-04-25 13:57 | disposition home or self-care (01) ==
LOC: ONCMED 13:59
PROVIDERS: PCP Nurse Practitioner; Visit Provider Internal Medicine Medical Oncology
DX: Z51.11 Encounter for antineoplastic chemotherapy (principal); C61 Malignant neoplasm of prostate; C79.51 Secondary malignant neoplasm of bone; Z79.899 Other long term (current) drug therapy
CPT/HCPCS: 96372; J0897

== ENCOUNTER → 2021-05-21 10:23 | Outpatient (BNVA) | payer MEDICARE, SELFPAY | PROVIDERS: PCP Nurse Practitioner; Visit Provider Nurse Practitioner | DX: E11.65 Type 2 diabetes mellitus with hyperglycemia (principal); Z79.4 Long term (current) use of insulin; E78.2 Mixed hyperlipidemia; I10 Essential (primary) hypertension; Z87.39 Personal history of other diseases of the musculoskeletal system and connective tissue; J30.2 Other seasonal allergic rhinitis; R82.90 Unspecified abnormal findings in urine; E11.40 Type 2 diabetes mellitus with diabetic neuropathy, unspecified | CPT/HCPCS: 80053; 80061; 81000; 83036; 84443; 87077; 87086; 87184 ==

== ENCOUNTER 2021-05-27 13:55 | Outpatient (CLI) | payer MEDICARE, MEDICAID, SELFPAY ==
[2021-05-27] MEDS: denosumab 120 mg SDV SUBCUT (14:25)
== END 2021-05-27 13:56 | disposition home or self-care (01) ==
LOC: ONCMED 13:57
PROVIDERS: PCP Nurse Practitioner; Visit Provider Internal Medicine Medical Oncology
DX: Z51.11 Encounter for antineoplastic chemotherapy (principal); C79.51 Secondary malignant neoplasm of bone; C61 Malignant neoplasm of prostate; I10 Essential (primary) hypertension; E78.5 Hyperlipidemia, unspecified; E11.9 Type 2 diabetes mellitus without complications; I25.10 Atherosclerotic heart disease of native coronary artery without angina pectoris; Z79.899 Other long term (current) drug therapy; M47.9 Spondylosis, unspecified; E66.9 Obesity, unspecified; Z68.35 Body mass index [BMI] 35.0-35.9, adult
CPT/HCPCS: 96372; J0897

== ENCOUNTER 2021-07-09 13:50 | Outpatient (CLI) | payer MEDICARE, MEDICAID, SELFPAY ==
[2021-07-09 15:05] LABS: Basophils % 0.2 %; Hematocrit 35.3 % (42.0-52.0); Hemoglobin 11.7 g/dL (11.7-16.6); Lymphocytes # 1.2 10^3/uL (0.8-4.8); Lymphocytes % 30.5 %; Mean Corpuscular HGB Conc 33.1 g/dL (30.0-36.0); Mean Corpuscular Hemoglobin 31.7 pg (28.0-34.0); Mean Corpuscular Volume 95.7 fl (80-94); Mean Platelet Volume 11.2 fL (7.4-10.4); Monocytes # 0.4 10^3/uL (0.2-0.9); Monocytes % 10.6 %; Neutrophils # 2.33 10^3/uL (1.8-7.7); Neutrophils % 57.2 %; Nucleated Red Blood Cells % 0 %; Platelet Count 78 10^3/cmm (130-400); Red Blood Count 3.69 10^6/uL (4.1-5.3); White Blood Count 4.1 10^3/uL (4.0-10.0)
[2021-07-09] MEDS: denosumab 120 mg SDV SUBCUT (15:44)
[2021-07-09] MEDS: lidocaine 1% INJ 20 mL INJECTION (15:44)
[2021-07-09] MEDS: goserelin acetate 10.8 mg Implant SUBCUT (15:55)
[2021-07-09 16:11] LABS: Prostate Specific Antigen 0.786 ng/mL (0-4)
[2021-07-09 16:33] LABS: Alanine Aminotransferase 12 U/L (0-41); Albumin Level 3.6 g/dL (3.5-5.2); Alkaline Phosphatase 92 IU/L (40-130); Anion Gap 16.9 (5-19); Aspartate Amino Transferase 21 U/L (0-40); Blood Urea Nitrogen 14 mg/dL (8-23); Calcium 9.3 mg/dL (8.5-10.5); Carbon Dioxide 25 mmol/L (22-29); Chloride 103 mmol/L (98-107); Globulin 2.9 g/dL (1.3-4.6); Glucose 96 mg/dL (65-115); Osmolality Calculated 290 mOsm/kg (285-295); Potassium 4.9 mmol/L (3.5-5.1); Sodium 140 mmol/L (136-145); Total Bilirubin 0.5 mg/dL (0.15-1.2); Total Protein 6.5 g/dL (6.6-8.7)
[2021-07-09 18:01] LABS: Testosterone Total 21.2 ng/dL (193-740)
--- NOTE | 2021-07-10 07:05 | ONC FU_ITS ---
Dr. Paiz Patient Follow-Up Note Patient: Rj Robbins Unit #: [id number]: [id number] Dicatated By: Ronen Paiz M.D.Date of Visit:Jul 09, 2021 Onc Med Follow-up/Prog Note Chief Complaint: Prostate cancer. History of Present Illness: This is a 71 year-old man with Martha score 7 prostatic adenocarcinoma, stage IIA (T2a, N0, M0) at initial diagnosis in 2008. He had subsequent progression to stage IVB (M1b) with development of multiple sites of metastatic bone involvement. In 2008 he was found to have prostate cancer. By clinical evaluation he had stage IIA disease. He was given androgen deprivation therapy together with definitive radiation, which he completed in May 2009 to a total dose of 7560 cGy. I was not able to verify the duration of the androgen deprivation. I had seen him initially in March 2016 in regard to mild thrombocytopenia. I was not able to determine a specific cause for it. As he was not overtly symptomatic with it, I had just recommended observation/expectant management. During follow-up he was noted to have a rising PSA level. As of his follow-up visit in October 2017 it had increased to 12.00 ng/mL. At that point I had recommended restaging with CT abdomen/pelvis and bone scan, but those studies were never completed, and he was then lost to follow-up. In July 2020 he had follow-up at Dr. Callahan's office with new onset of hematuria. He had subsequently developed urinary retention, requiring placement of indwelling Robles catheter. His PSA level was noted to have further increased to 19.340 ng/mL. CT abdomen/pelvis on 08/08/2020 showed evidence of previous left nephrectomy with poorly visualized low-attenuation mass in the right kidney measuring 2.3 cm. This was thought to most likely represent a complex cyst. Innumerable sclerotic foci were noted throughout the visualized bones suspicious for metastatic disease. An area of blush-like enhancement was noted in the left posterior urinary bladder. There was mild surface lobulation of the liver, consistent with cirrhosis. The spleen was noted to be at top normal size at 12 cm. On his outpatient cystoscopy the prostate did not appear overtly enlarged. His bladder neck was high and it was noted to be very tight. The bladder was noted to be heavily trabeculated with cellule formation and high-pressure configuration. Further evaluation with bone scan on 08/17/2020 showed moderate osteoblastic metastatic bone disease with the most significant involvement noted throughout the spine, ribs, and pelvis. There was also intense uptake in the left clavicular head and inferior right scapula. I had seen him again on 08/29/2020. With clinical evidence of metastatic prostate cancer, androgen deprivation therapy was recommended, and he started bicalutamide 50 mg daily. He then returned on 09/20/2020 for his initial injection of Zoladex. At that point his PSA level had declined to 4.130 ng/mL. Subsequent to that visit, his antiandrogen therapy was transitioned from bicalutamide to enzalutamide 160 mg daily. He then continued androgen deprivation therapy with Zoladex every 3 months, and during follow-up there was further gradual decline in the PSA level. As of 12/24/2020 it had decreased to 1.510 ng/mL. During that time he also began monthly injections of denosumab for the metastatic bone involvement. His other medical illnesses include hypertension, hyperlipidemia, type II diabetes, and coronary artery disease. He also has degenerative arthritis/degenerative disease of the spine and gout. He has a previous history of chewing tobacco, but he is a nonsmoker. He has had at least moderate alcohol use, but he quit drinking more than 5 years ago. INTERIM HISTORY: He is seen for a follow-up visit. He has been feeling pretty good generally. He says his energy is not too bad. He is able to do light work. His appetite is okay, but he says that he could eat more. His weight is down a few pounds. He does not have fever, night sweats, or hot flashes. His sinus symptoms have improved with an allergy medication. He has not had sore mouth or throat. He does not complain of shortness of breath, cough, or chest pain. He had been having diarrhea, but that improved with a decrease in the enzalutamide dosage to 120 mg daily. Bowel function lately has been back to normal. He has no complaints. He says his back hurts quite a bit, but that is chronic. He does not complain of headache. He has had some orthostatic dysequilibrium. He sometimes gets numbness in his hands during the night. He also complains that his feet sometimes hurt. Medications: Allopurinol 1 (300 mg) Tablet Oral daily, Atorvastatin Calcium 1 Tablet (of 40 mg) Oral daily, Byetta 5 MCG Pen (5 mcg/0.02mL) Subcutaneous b.i.d., Camphor (3.1 %) Cream Topical t.i.d. PRN, Cetirizine HCl 1 Tablet (of 10 mg) Oral daily PRN, Cymbalta 1 (20 mg) Capsule Delayed Release Particles Oral b.i.d., Enzalutamide 3 Tablet (of 40 mg) Oral daily, Flomax 1 (0.4 mg) Capsule Oral b.i.d., Furosemide 0.5 Tablet (of 20 mg) Oral daily on Every Other Day, Icosapent Ethyl 1 Tablet (of 1 g) Capsule Oral b.i.d., Imdur 1 (60 mg) Tablet SR 24 HR Oral b.i.d., Levemir 70 Units (of 100 Units/mL) Subcutaneous daily, Lisinopril 1 (10 mg) Tablet Oral b.i.d., Metoprolol Tartrate 1 (100 mg) Tablet Oral b.i.d., Nitrostat 1 (0.4 mg) Tablet, sublingual Sublingual PRN, oxyCODONE HCl 1 Tablet (of 5 mg) Oral q 8 hours PRN Allergies: Aldactazide and Ibuprofen. Vital Signs: Performed on Jul 09, 2021 15:37 Height - 73.00 in Weight - 268.6 lbs (LOW) BSA - 2.44 sq.m BMI - 35.44 (HIGH) Temperature - 97.2 F (LOW) Pulse - 69 /min Respiration - 18 /min BP - 144/78 mm(hg) (HIGH) O2 Sat - 93 % (LOW) Pain - 4 Fatigue - 0 Physical Examination: Constitutional - He has limited mobility, but he otherwise looks pretty good, Eyes - Sclerae nonicteric. Conjunctivae clear, ENMT - No lesions noted in the oral cavity, Hematologic/Lymphatic - No cervical, clavicular, or axillary adenopathy, Respiratory - Lungs are clear with diminished air movement bilaterally, Cardiovascular - Heart rhythm is regular. There is no murmur, gallop, or rub noted, Abdomen - Moderately distended. Liver and spleen are not enlarged. There is no abdominal mass or ascites noted and there is no inguinal adenopathy, Extremities - No edema, Neurologic - No focal neurologic deficits noted. Lab/Imaging: Test performed on Jul 09, 2021 14:13 Sodium 140 mmol/L Testosterone, Total 21.2 ng/dL Potassium 4.9 mmol/L Chloride 103 mmol/L CO2 25 mmol/L Anion Gap 16.9 BUN 14 mg/dL Creatinine 0.6 mg/dL Cr Clearance (Est) 188.9600 mL/min Glucose 96 mg/dL Osmolality - Calculated 290 mOsm/kg Calcium 9.3 mg/dL Protein, Total 6.5 g/dL Albumin 3.6 g/dL Globulin 2.9 g/dL Bilirubin, Total 0.5 mg/dL ALT (SGPT) 12 U/L AST (SGOT) 21 U/L Alkaline Phosphatase 92 IU/L WBC 4.1 10 3/uL RBC 3.69 10 6/uL HGB 11.7 g/dL HCT 35.3 % MCV 95.7 fl MCH 31.7 pg MCHC 33.1 g/dL RDW 13.0 % Platelet Count 78 10 3/cmm MPV 11.2 fL Neutrophils 2.33 10 3/uL Lymphocytes 1.2 10 3/uL Monocytes 0.4 10 3/uL Eosinophils 0.0 10 3/uL Basophils 0.0 10 3/uL Neutrophil % 57.2 % Lymphocyte % 30.5 % Monocyte % 10.6 % Eosinophil % 1.0 % Basophils % 0.2 % NRBC % 0 % PSA 0.786 ng/mL Problem List: 1. Prostatic adenocarcinoma, [place] score 7, stage IIA at initial diagnosis in 2008. At that time he underwent definitive radiation in combination with short-term androgen deprivation therapy. 2. He was found to have rising PSA level as far back as October 2017. As of August 2020 he was found to have stage IVB disease (M1 b) with CT and bone scan evidence of osteoblastic bony metastatic disease. He also had urinary retention, requiring indwelling Robles catheter. 3. He has fairly longstanding mild to moderately severe thrombocytopenia. At this point it would appear to be most likely due to cirrhosis/hypersplenism. 4. Hypertension. 5. Hyperlipidemia. 6. Type II diabetes. 7. Coronary artery disease with previous angioplasty/stent placement. 8. Obesity. 9. Degenerative arthritis/degenerative disease of the spine. 10. History of gout. 11. He is status post left nephrectomy for traumatic injury. Problems Addressed with this Encounter and Plan: 1. Patient with prostatic adenocarcinoma, [place] score 7, stage IIA at initial diagnosis in 2008. At that time he underwent definitive radiation in combination with short-term androgen deprivation therapy. In August 2020 he was found to have stage IVB disease (M1 b) with CT and bone scan evidence of osteoblastic bony metastatic disease. He began androgen deprivation therapy with bicalutamide and Zoladex. The antiandrogen was subsequently transitioned to enzalutamide. During follow-up there has been a gradual decline in the PSA level, now to 0.786 ng/mL. He did require a drink use in the enzalutamide dosage to 120 mg daily due to diarrhea, but that has now resolved. Overall, he has tolerated treatment very well, and he does appear to be showing a very good response. He will be given Zoladex 10.8 mg today and he will continue enzalutamide 120 mg daily. He will be scheduled for a follow-up visit in 3 months. 2. He has metastatic bone involvement, and he also has started treatment with denosumab, which he has tolerated well. He will be given denosumab 120 mg by subcutaneous injection today, and those will be continued monthly. 3. He has mild to moderately severe thrombocytopenia and he also has mild anemia. At least some component is likely due to underlying cirrhosis/hypersplenism, though the androgen deprivation therapy may also be contributing to the anemia. As long as the blood counts remain adequate it can be followed expectantly. Signed By: Ronen Paiz M.D. <<Signature on File>>
== END 2021-07-09 13:51 | disposition home or self-care (01) ==
PROVIDERS: PCP Nurse Practitioner; Visit Provider Internal Medicine Medical Oncology
DX: C61 Malignant neoplasm of prostate (principal); C79.51 Secondary malignant neoplasm of bone; D64.9 Anemia, unspecified; D69.6 Thrombocytopenia, unspecified; Z79.899 Other long term (current) drug therapy; Z79.818 Long term (current) use of other agents affecting estrogen receptors and estrogen levels
CPT/HCPCS: 36415; 80053; 84153; 84403; 85025; 96372; 96402; 99215; J0897; J9202

== ENCOUNTER 2021-08-09 10:30 | Outpatient (CLI) | payer MEDICARE, MEDICAID, SELFPAY ==
[2021-08-09] MEDS: denosumab 120 mg SDV SUBCUT (10:45)
== END 2021-08-09 10:31 | disposition home or self-care (01) ==
PROVIDERS: PCP Nurse Practitioner; Visit Provider Internal Medicine Medical Oncology
DX: Z51.11 Encounter for antineoplastic chemotherapy (principal); C61 Malignant neoplasm of prostate; C79.51 Secondary malignant neoplasm of bone; Z79.899 Other long term (current) drug therapy
CPT/HCPCS: 96372; J0897

== ENCOUNTER 2021-09-09 14:00 | Outpatient (CLI) | payer MEDICARE, MEDICAID, SELFPAY ==
[2021-09-09] MEDS: denosumab 120 mg SDV SUBCUT (14:48)
== END 2021-09-09 14:01 | disposition home or self-care (01) ==
LOC: ONCMED 14:03
PROVIDERS: PCP Nurse Practitioner; Visit Provider Internal Medicine Medical Oncology
DX: Z51.11 Encounter for antineoplastic chemotherapy (principal); C61 Malignant neoplasm of prostate; C79.51 Secondary malignant neoplasm of bone
CPT/HCPCS: 96372; J0897

== ENCOUNTER 2021-10-02 11:20 | Outpatient (CLI) | payer MEDICARE, MEDICAID, SELFPAY ==
[2021-10-02 12:06] LABS: Basophils % 0.6 %; Eosinophils # 0.1 10^3/uL (0.0-0.8); Eosinophils % 1.2 %; Hematocrit 39.2 % (42.0-52.0); Hemoglobin 13.2 g/dL (11.7-16.6); Lymphocytes # 1.6 10^3/uL (0.8-4.8); Lymphocytes % 32.9 %; Mean Corpuscular HGB Conc 33.7 g/dL (30.0-36.0); Mean Platelet Volume 10.9 fL (7.4-10.4); Monocytes # 0.6 10^3/uL (0.2-0.9); Monocytes % 12.3 %; Neutrophils # 2.57 10^3/uL (1.8-7.7); Neutrophils % 52.8 %; Nucleated Red Blood Cells % 0 %; Platelet Count 101 10^3/cmm (130-400); Red Blood Count 4.26 10^6/uL (4.1-5.3); Red Cell Distribution Width 12.9 % (12.1-15.1); White Blood Count 4.9 10^3/uL (4.0-10.0)
[2021-10-02 12:51] LABS: Slide Review Slide Review Perform
[2021-10-02 13:00] LABS: Alanine Aminotransferase 7 U/L (0-41); Albumin Level 3.6 g/dL (3.5-5.2); Alkaline Phosphatase 117 IU/L (40-130); Anion Gap 17.5 (5-19); Aspartate Amino Transferase 15 U/L (0-40); Blood Urea Nitrogen 38 mg/dL (8-23); Calcium 8.4 mg/dL (8.5-10.5); Carbon Dioxide 22 mmol/L (22-29); Chloride 101 mmol/L (98-107); Globulin 2.5 g/dL (1.3-4.6); Glucose 115 mg/dL (65-115); Osmolality Calculated 292 mOsm/kg (285-295); Potassium 4.5 mmol/L (3.5-5.1); Prostate Specific Antigen 0.766 ng/mL (0-4); Sodium 136 mmol/L (136-145); Testosterone Total 24.3 ng/dL (193-740); Total Bilirubin 0.4 mg/dL (0.15-1.2); Total Protein 6.1 g/dL (6.6-8.7)
[2021-10-02] MEDS: lidocaine 1% INJ 20 mL INJECTION (13:50)
[2021-10-02] MEDS: goserelin acetate 10.8 mg Implant SUBCUT (14:00)
[2021-10-02] MEDS: denosumab 120 mg SDV SUBCUT (14:02)
--- NOTE | 2021-10-05 14:40 | ONC FU_ITS ---
Dr. Paiz Patient Follow-Up Note Patient: Rj Robbins Unit #: [id number]: [id number] Dicatated By: Ronen Paiz M.D.Date of Visit:Oct 02, 2021 Onc Med Follow-up/Prog Note Chief Complaint: Prostate cancer. History of Present Illness: This is a 71 year-old man with Martha score 7 prostatic adenocarcinoma, stage IIA (T2a, N0, M0) at initial diagnosis in 2008. He had subsequent progression to stage IVB (M1b) with development of multiple sites of metastatic bone involvement. In 2008 he was found to have prostate cancer. By clinical evaluation he had stage IIA disease. He was given androgen deprivation therapy together with definitive radiation, which he completed in May 2009 to a total dose of 7560 cGy. I was not able to verify the duration of the androgen deprivation. I had seen him initially in March 2016 in regard to mild thrombocytopenia. I was not able to determine a specific cause for it. As he was not overtly symptomatic with it, I had just recommended observation/expectant management. During follow-up he was noted to have a rising PSA level. As of his follow-up visit in October 2017 it had increased to 12.00 ng/mL. At that point I had recommended restaging with CT abdomen/pelvis and bone scan, but those studies were never completed, and he was then lost to follow-up. In July 2020 he had follow-up at Dr. Callahan's office with new onset of hematuria. He had subsequently developed urinary retention, requiring placement of indwelling Robles catheter. His PSA level was noted to have further increased to 19.340 ng/mL. CT abdomen/pelvis on 08/08/2020 showed evidence of previous left nephrectomy with poorly visualized low-attenuation mass in the right kidney measuring 2.3 cm. This was thought to most likely represent a complex cyst. Innumerable sclerotic foci were noted throughout the visualized bones suspicious for metastatic disease. An area of blush-like enhancement was noted in the left posterior urinary bladder. There was mild surface lobulation of the liver, consistent with cirrhosis. The spleen was noted to be at top normal size at 12 cm. On his outpatient cystoscopy the prostate did not appear overtly enlarged. His bladder neck was high and it was noted to be very tight. The bladder was noted to be heavily trabeculated with cellule formation and high-pressure configuration. Further evaluation with bone scan on 08/17/2020 showed moderate osteoblastic metastatic bone disease with the most significant involvement noted throughout the spine, ribs, and pelvis. There was also intense uptake in the left clavicular head and inferior right scapula. I had seen him again on 08/29/2020. With clinical evidence of metastatic prostate cancer, androgen deprivation therapy was recommended, and he started bicalutamide 50 mg daily. He then returned on 09/20/2020 for his initial injection of Zoladex. At that point his PSA level had declined to 4.130 ng/mL. Subsequent to that visit, his antiandrogen therapy was transitioned from bicalutamide to enzalutamide 160 mg daily. He then continued androgen deprivation therapy with Zoladex every 3 months, and during follow-up there was further gradual decline in the PSA level. As of 12/24/2020 it had decreased to 1.510 ng/mL. During that time he also began monthly injections of denosumab for the metastatic bone involvement. He required a dose reduction in the enzalutamide to 120 mg daily due to diarrhea. As of 07/09/2021 his PSA level was down to 0.786 ng/mL. His other medical illnesses include hypertension, hyperlipidemia, type II diabetes, and coronary artery disease. He also has degenerative arthritis/degenerative disease of the spine and gout. He has a previous history of chewing tobacco, but he is a nonsmoker. He has had at least moderate alcohol use, but he quit drinking more than 5 years ago. INTERIM HISTORY: He is seen for a follow-up visit. He has been feeling pretty good generally. His energy is not too bad, but he does have limited activity. His ECOG score is 1. His appetite has been okay. He has had some weight loss, though recently it has been stable. He does not have fever, night sweats, or hot flashes. He has some sinus drainage and he sometimes has cough. He has not had sore mouth or throat. He says his breathing is pretty good. He does not complain of chest pain. He has been having some nausea. He has had diarrhea for about a week, but he says it is getting better. He has no complaints. He has some pain in his back, which is chronic. He occasionally has headache and he occasionally gets lightheaded. He has numbness/tingling in his hands and feet. Medications: Allopurinol 1 (300 mg) Tablet Oral daily, Atorvastatin Calcium 1 Tablet (of 40 mg) Oral daily, Byetta 5 MCG Pen (5 mcg/0.02mL) Subcutaneous b.i.d., Camphor (3.1 %) Cream Topical t.i.d. PRN, Cetirizine HCl 1 Tablet (of 10 mg) Oral daily PRN, Cymbalta 1 (20 mg) Capsule Delayed Release Particles Oral b.i.d., Enzalutamide 3 Tablet (of 40 mg) Oral daily, Flomax 1 (0.4 mg) Capsule Oral b.i.d., Furosemide 0.5 Tablet (of 20 mg) Oral daily on Every Other Day, Icosapent Ethyl 1 Tablet (of 1 g) Capsule Oral b.i.d., Imdur 1 (60 mg) Tablet SR 24 HR Oral b.i.d., Levemir 70 Units (of 100 Units/mL) Subcutaneous daily, Lisinopril 1 (10 mg) Tablet Oral b.i.d., Metoprolol Tartrate 1 (100 mg) Tablet Oral b.i.d., Nitrostat 1 (0.4 mg) Tablet, sublingual Sublingual PRN, oxyCODONE HCl 1 Tablet (of 5 mg) Oral q 8 hours PRN Allergies: Aldactazide and Ibuprofen. Vital Signs: Performed on Oct 02, 2021 13:15 Height - 73.00 in Weight - 263.2 lbs (LOW) BSA - 2.42 sq.m BMI - 34.73 (HIGH) Temperature - 96.8 F (LOW) Pulse - 66 /min Respiration - 20 /min BP - 119/70 mm(hg) O2 Sat - 97 % Pain - 3 Fatigue - 8 Physical Examination: Constitutional - She looks pretty good generally, but he does have limited mobility, Eyes - Sclerae nonicteric. Conjunctivae clear, ENMT - No lesions noted in the oral cavity, Hematologic/Lymphatic - No cervical, clavicular, or axillary adenopathy, Respiratory - Lungs are clear with diminished air movement bilaterally, Cardiovascular - Heart rhythm is regular. There is no murmur, gallop, or rub noted, Abdomen - Mildly distended but soft. Liver and spleen are not enlarged. There is no abdominal mass or ascites noted and there is no inguinal adenopathy, Extremities - No edema, Neurologic - No focal neurologic deficits noted. Lab/Imaging: Test performed on Oct 02, 2021 11:51 Sodium 136 mmol/L Testosterone, Total 24.3 ng/dL Potassium 4.5 mmol/L Chloride 101 mmol/L CO2 22 mmol/L Anion Gap 17.5 BUN 38 mg/dL Creatinine 1.5 mg/dL Cr Clearance (Est) 74.06 mL/min Glucose 115 mg/dL Osmolality - Calculated 292 mOsm/kg Calcium 8.4 mg/dL Protein, Total 6.1 g/dL Albumin 3.6 g/dL Globulin 2.5 g/dL Bilirubin, Total 0.4 mg/dL ALT (SGPT) 7 U/L AST (SGOT) 15 U/L Alkaline Phosphatase 117 IU/L WBC 4.9 10 3/uL RBC 4.26 10 6/uL HGB 13.2 g/dL HCT 39.2 % MCV 92.0 fl MCH 31.0 pg MCHC 33.7 g/dL RDW 12.9 % Platelet Count 101 10 3/cmm MPV 10.9 fL Neutrophils 2.57 10 3/uL Lymphocytes 1.6 10 3/uL Monocytes 0.6 10 3/uL Eosinophils 0.1 10 3/uL Basophils 0.0 10 3/uL Neutrophil % 52.8 % Lymphocyte % 32.9 % Monocyte % 12.3 % Eosinophil % 1.2 % Basophils % 0.6 % NRBC % 0 % CBC Slide Review Slide Review Perform SLIDE REVIEW AGREES WITH AUTOMATED RESULTS PSA 0.766 ng/mL Problem List: 1. Prostatic adenocarcinoma, [place] score 7, stage IIA at initial diagnosis in 2008. At that time he underwent definitive radiation in combination with short-term androgen deprivation therapy. 2. He was found to have rising PSA level as far back as October 2017. As of August 2020 he was found to have stage IVB disease (M1 b) with CT and bone scan evidence of osteoblastic bony metastatic disease. He also had urinary retention, requiring indwelling Robles catheter. 3. He has fairly longstanding mild to moderately severe thrombocytopenia. At this point it would appear to be most likely due to cirrhosis/hypersplenism. 4. Hypertension. 5. Hyperlipidemia. 6. Type II diabetes. 7. Coronary artery disease with previous angioplasty/stent placement. 8. Obesity. 9. Degenerative arthritis/degenerative disease of the spine. 10. History of gout. 11. He is status post left nephrectomy for traumatic injury. Problems Addressed with this Encounter and Plan: 1. Patient with prostatic adenocarcinoma, Martha score 7, stage IIA at initial diagnosis in 2008. At that time he underwent definitive radiation in combination with short-term androgen deprivation therapy. In August 2020 he was found to have stage IVB disease (M1 b) with CT and bone scan evidence of osteoblastic bony metastatic disease. He began androgen deprivation therapy with bicalutamide and Zoladex. The antiandrogen was subsequently transitioned to enzalutamide. During follow-up there was a gradual decline in the PSA level. It has now stabilized at 0.766 ng/mL. He required a reduction in the enzalutamide dosage to 120 mg daily due to diarrhea, which subsequently resolved. He has otherwise tolerated treatment very well, and he has had a very good response. Recently has started having some diarrhea again, but it appears to be resolving. He otherwise appears to be doing very well clinically. He will be given Zoladex 10.8 mg today and he will continue enzalutamide 120 mg daily. He may require a further dose reduction if his diarrhea persists. He will be scheduled for a follow-up visit in 3 months. 2. He has metastatic bone involvement, and he also has started treatment with denosumab, which he has tolerated well. He will be given denosumab 120 mg by subcutaneous injection today, and those will be continued monthly. 3. He has mild to moderately severe thrombocytopenia and he also has mild anemia. At least some component is likely due to underlying cirrhosis/hypersplenism, though the androgen deprivation therapy may also be contributing to the anemia. As long as the blood counts remain adequate it can be followed expectantly. Signed By: Ronne Paiz M.D. <<Signature on File>>
== END 2021-10-02 11:21 | disposition home or self-care (01) ==
PROVIDERS: PCP Nurse Practitioner; Visit Provider Internal Medicine Medical Oncology
DX: Z51.11 Encounter for antineoplastic chemotherapy (principal); C61 Malignant neoplasm of prostate; C79.51 Secondary malignant neoplasm of bone; R97.20 Elevated prostate specific antigen [PSA]; D69.6 Thrombocytopenia, unspecified; K74.60 Unspecified cirrhosis of liver; D73.1 Hypersplenism; I10 Essential (primary) hypertension; E78.5 Hyperlipidemia, unspecified; E11.59 Type 2 diabetes mellitus with other circulatory complications; I25.10 Atherosclerotic heart disease of native coronary artery without angina pectoris; Z95.5 Presence of coronary angioplasty implant and graft; E66.9 Obesity, unspecified; M47.9 Spondylosis, unspecified; M10.9 Gout, unspecified; Z90.5 Acquired absence of kidney; Z79.899 Other long term (current) drug therapy; Z79.818 Long term (current) use of other agents affecting estrogen receptors and estrogen levels
CPT/HCPCS: 80053; 84153; 84403; 85025; 96372; 96402; 99215; J0897; J9202

== ENCOUNTER → 2021-11-06 11:20 | Outpatient (BNVA) | payer MEDICARE, MEDICAID, SELFPAY | PROVIDERS: PCP Nurse Practitioner; Visit Provider Nurse Practitioner | DX: I10 Essential (primary) hypertension (principal); R82.90 Unspecified abnormal findings in urine; E11.65 Type 2 diabetes mellitus with hyperglycemia; Z79.4 Long term (current) use of insulin; E78.2 Mixed hyperlipidemia; Z87.39 Personal history of other diseases of the musculoskeletal system and connective tissue; J30.2 Other seasonal allergic rhinitis; E11.40 Type 2 diabetes mellitus with diabetic neuropathy, unspecified | CPT/HCPCS: 80053; 80061; 81000; 83036; 87077; 87086; 87184 ==

== ENCOUNTER → 2021-12-02 13:09 | Outpatient (BNVA) | payer MEDICARE, MEDICAID, SELFPAY | PROVIDERS: PCP Nurse Practitioner; Visit Provider Nurse Practitioner | DX: Z20.822 Contact with and (suspected) exposure to COVID-19 (principal) | CPT/HCPCS: 87635 ==

== ENCOUNTER 2021-12-16 13:41 | Outpatient (CLI) | payer MEDICARE, MEDICAID, SELFPAY ==
[2021-12-16] MEDS: denosumab 120 mg SDV SUBCUT (13:55)
== END 2021-12-16 13:42 | disposition home or self-care (01) ==
PROVIDERS: PCP Nurse Practitioner; Visit Provider Internal Medicine Medical Oncology
DX: Z51.11 Encounter for antineoplastic chemotherapy (principal); C61 Malignant neoplasm of prostate; C79.51 Secondary malignant neoplasm of bone; D69.6 Thrombocytopenia, unspecified
CPT/HCPCS: 96372; J0897

== ENCOUNTER 2022-01-08 09:00 | Outpatient (CLI) | payer MEDICARE, MEDICAID, SELFPAY ==
[2022-01-08 09:42] LABS: Basophils % 0.3 %; Hematocrit 40.4 % (42.0-52.0); Hemoglobin 13.4 g/dL (11.7-16.6); Lymphocytes # 0.8 10^3/uL (0.8-4.8); Lymphocytes % 26.7 %; Mean Corpuscular HGB Conc 33.2 g/dL (30.0-36.0); Mean Corpuscular Hemoglobin 30.8 pg (28.0-34.0); Mean Corpuscular Volume 92.9 fl (80-94); Mean Platelet Volume 10.6 fL (7.4-10.4); Monocytes # 0.4 10^3/uL (0.2-0.9); Monocytes % 12.3 %; Neutrophils # 1.73 10^3/uL (1.8-7.7); Neutrophils % 59.4 %; Nucleated Red Blood Cells % 0 %; Platelet Count 70 10^3/cmm (130-400); Red Blood Count 4.35 10^6/uL (4.1-5.3); Red Cell Distribution Width 13.5 % (12.1-15.1); White Blood Count 2.9 10^3/uL (4.0-10.0)
[2022-01-08 10:15] LABS: Alanine Aminotransferase 16 U/L (0-41); Alkaline Phosphatase 99 IU/L (40-130); Anion Gap 14.5 (5-19); Aspartate Amino Transferase 21 U/L (0-40); Blood Urea Nitrogen 18 mg/dL (8-23); Calcium 9.7 mg/dL (8.5-10.5); Carbon Dioxide 30 mmol/L (22-29); Chloride 97 mmol/L (98-107); Globulin 2.9 g/dL (1.3-4.6); Glucose 257 mg/dL (65-115); Osmolality Calculated 295 mOsm/kg (285-295); Potassium 4.5 mmol/L (3.5-5.1); Prostate Specific Antigen 0.744 ng/mL (0-4); Sodium 137 mmol/L (136-145); Testosterone Total 25.4 ng/dL (193-740); Total Bilirubin 0.6 mg/dL (0.15-1.2); Total Protein 6.9 g/dL (6.6-8.7)
[2022-01-08] MEDS: lidocaine 1% INJ 20 mL INJECTION (11:40)
[2022-01-08] MEDS: goserelin acetate 10.8 mg Implant SUBCUT (12:00)
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
== END 2022-01-08 09:01 | disposition home or self-care (01) ==
PROVIDERS: PCP Nurse Practitioner; Visit Provider Internal Medicine Medical Oncology
DX: C61 Malignant neoplasm of prostate (principal); C79.51 Secondary malignant neoplasm of bone; D69.6 Thrombocytopenia, unspecified; I10 Essential (primary) hypertension; E78.5 Hyperlipidemia, unspecified; E11.9 Type 2 diabetes mellitus without complications; I25.10 Atherosclerotic heart disease of native coronary artery without angina pectoris; E66.9 Obesity, unspecified; M47.9 Spondylosis, unspecified
CPT/HCPCS: 36415; 80053; 84153; 84403; 85025; 96402; 99215; J9202

== ENCOUNTER 2022-01-15 13:35 | Outpatient (CLI) | payer MEDICARE, MEDICAID, SELFPAY ==
[2022-01-15] MEDS: denosumab 120 mg SDV SUBCUT (14:05)
[2022-01-15 14:42] LABS: Eosinophils # 0.1 10^3/uL (0.0-0.8); Eosinophils % 1.7 %; Hematocrit 38.7 % (42.0-52.0); Hemoglobin 12.9 g/dL (11.7-16.6); Lymphocytes # 1.1 10^3/uL (0.8-4.8); Lymphocytes % 26.9 %; Mean Corpuscular HGB Conc 33.3 g/dL (30.0-36.0); Mean Corpuscular Hemoglobin 31.1 pg (28.0-34.0); Mean Corpuscular Volume 93.3 fl (80-94); Monocytes # 0.5 10^3/uL (0.2-0.9); Monocytes % 11.5 %; Neutrophils # 2.41 10^3/uL (1.8-7.7); Neutrophils % 58.9 %; Nucleated Red Blood Cells % 0 %; Platelet Count 96 10^3/cmm (130-400); Red Blood Count 4.15 10^6/uL (4.1-5.3); Red Cell Distribution Width 13.4 % (12.1-15.1); White Blood Count 4.1 10^3/uL (4.0-10.0)
== END 2022-01-15 13:36 | disposition home or self-care (01) ==
LOC: ONCMED 13:37
PROVIDERS: PCP Nurse Practitioner; Visit Provider Internal Medicine Medical Oncology
DX: C61 Malignant neoplasm of prostate (principal)
CPT/HCPCS: 36415; 85025; 96372; J0897

== ENCOUNTER 2022-02-12 14:12 | Outpatient (CLI) | payer MEDICARE, MEDICAID, SELFPAY ==
[2022-02-12] MEDS: denosumab 120 mg SDV SUBCUT (14:30)
== END 2022-02-12 14:13 | disposition home or self-care (01) ==
PROVIDERS: PCP Nurse Practitioner; Visit Provider Internal Medicine Medical Oncology
DX: Z51.11 Encounter for antineoplastic chemotherapy (principal); C61 Malignant neoplasm of prostate; C79.51 Secondary malignant neoplasm of bone; D69.6 Thrombocytopenia, unspecified; Z79.899 Other long term (current) drug therapy
CPT/HCPCS: 96372; J0897

== ENCOUNTER → 2022-03-10 09:22 | Outpatient (BNVA) | payer MEDICARE, MEDICAID, SELFPAY | PROVIDERS: PCP Nurse Practitioner; Visit Provider Nurse Practitioner | DX: E11.9 Type 2 diabetes mellitus without complications (principal); E11.65 Type 2 diabetes mellitus with hyperglycemia; I10 Essential (primary) hypertension; Z79.4 Long term (current) use of insulin; E78.5 Hyperlipidemia, unspecified | CPT/HCPCS: 80053; 80061; 81003; 83036; 87086 ==

== ENCOUNTER 2022-03-12 13:05 | Oncology outpatient (recurring) (ONCR) | payer MEDICARE, MEDICAID, SELFPAY ==
[2022-03-12 13:36] VITALS: BP 105/64; PULSE 69; RESP 18; TEMP 35.9; O2SAT 96
[2022-03-12] MEDS: denosumab 120 mg SDV SUBCUT (14:09)
== END 2022-04-01 23:59 | disposition home or self-care (01) ==
LOC: ONCMED 13:06
PROVIDERS: PCP Nurse Practitioner; Referring Provider Nurse Practitioner; Visit Provider Internal Medicine Medical Oncology
DX: Z51.11 Encounter for antineoplastic chemotherapy (principal); C61 Malignant neoplasm of prostate; C79.51 Secondary malignant neoplasm of bone; D69.6 Thrombocytopenia, unspecified; Z79.899 Other long term (current) drug therapy
CPT/HCPCS: 96372; J0897

== ENCOUNTER 2022-04-03 10:42 | Oncology outpatient (recurring) (ONCR) | payer MEDICARE, MEDICAID, SELFPAY ==
[2022-04-03 11:29] LABS: Basophils % 0.8 %; Eosinophils # 0.1 10^3/uL (0.0-0.8); Hemoglobin 13.2 g/dL (11.7-16.6); Lymphocytes # 0.7 10^3/uL (0.8-4.8); Lymphocytes % 28.3 %; Mean Corpuscular Hemoglobin 30.1 pg (28.0-34.0); Mean Corpuscular Volume 91.3 fl (80-94); Mean Platelet Volume 10.6 fL (7.4-10.4); Monocytes # 0.3 10^3/uL (0.2-0.9); Monocytes % 10.4 %; Neutrophils # 1.46 10^3/uL (1.8-7.7); Neutrophils % 58.1 %; Nucleated Red Blood Cells % 0 %; Platelet Count 65 10^3/cmm (130-400); Red Blood Count 4.38 10^6/uL (4.1-5.3); Red Cell Distribution Width 13.3 % (12.1-15.1); White Blood Count 2.5 10^3/uL (4.0-10.0)
[2022-04-03 12:06] LABS: Alanine Aminotransferase 17 U/L (0-41); Albumin Level 3.6 g/dL (3.5-5.2); Alkaline Phosphatase 115 IU/L (40-130); Anion Gap 14.5 (5-19); Aspartate Amino Transferase 21 U/L (0-40); Blood Urea Nitrogen 8 mg/dL (8-23); Calcium 9.2 mg/dL (8.5-10.5); Carbon Dioxide 29 mmol/L (22-29); Chloride 100 mmol/L (98-107); Globulin 3.2 g/dL (1.3-4.6); Glucose 210 mg/dL (65-115); Osmolality Calculated 293 mOsm/kg (285-295); Potassium 4.5 mmol/L (3.5-5.1); Sodium 139 mmol/L (136-145); Testosterone Total 32.7 ng/dL (193-740); Total Bilirubin 0.7 mg/dL (0.15-1.2); Total Protein 6.8 g/dL (6.6-8.7)
[2022-04-03] MEDS: lidocaine 1% INJ 20 mL SUBCUT (13:31)
[2022-04-03] MEDS: goserelin acetate 10.8 mg Implant SUBCUT (13:49)
[2022-04-03 14:52] LABS: Add Urine Microscopic? YES; Bilirubin Urine Neg (Negative); Blood Urine 3+ (Negative); Glucose Urine UA Norm (Normal); Ketones Urine Negative (Negative); Leukocyte Esterase Urine 2+ (Negative); Nitrate Urine Negative (Negative); Protein Urine 1+ (Negative); Specific Gravity, Urine 1.015 (1.005-1.030); Urine Appearance Cloudy (CLEAR); Urine Color Yellow (Yellow); Urobilinogen Urine Norm (Negative); pH Urine 6 (5-7)
[2022-04-03 14:54] LABS: Add Urine Culture? Yes; Bacteria Urine 3+ /hpf; Mucus Urine TRACE /hpf; RBC Urine 25-40 /hpf (0-2); Squamous Epithelial Cell Urine 0-4 /hpf (0-5); WBC Urine TOO NUMEROUS TO CNT /hpf (0-5)
== END 2022-04-03 23:59 | disposition home or self-care (01) ==
PROVIDERS: Nurse Practitioner Family; PCP Nurse Practitioner; Referring Provider Nurse Practitioner; Visit Provider Internal Medicine Medical Oncology
DX: C61 Malignant neoplasm of prostate (principal); C79.51 Secondary malignant neoplasm of bone; D69.6 Thrombocytopenia, unspecified; K52.1 Toxic gastroenteritis and colitis; E11.65 Type 2 diabetes mellitus with hyperglycemia; Z79.4 Long term (current) use of insulin; Z79.818 Long term (current) use of other agents affecting estrogen receptors and estrogen levels; Z79.899 Other long term (current) drug therapy
CPT/HCPCS: 36415; 80053; 81001; 84153; 84403; 85025; 87086; 96372; 96377; 96401; 99214; J9202

== ENCOUNTER 2022-05-13 13:24 | Oncology outpatient (recurring) (ONCR) | payer MEDICARE, MEDICAID, SELFPAY ==
[2022-05-13 13:55] VITALS: BP 113/75; PULSE 65; RESP 18; TEMP 36.4; O2SAT 96
[2022-05-13] MEDS: denosumab 120 mg SDV SUBCUT (14:02)
== END 2022-06-01 23:59 | disposition home or self-care (01) ==
PROVIDERS: PCP Nurse Practitioner; Referring Provider Nurse Practitioner; Visit Provider Internal Medicine Medical Oncology
DX: Z51.11 Encounter for antineoplastic chemotherapy (principal); C61 Malignant neoplasm of prostate; C79.51 Secondary malignant neoplasm of bone
CPT/HCPCS: 96372; J0897

== ENCOUNTER → 2022-05-21 13:17 | Outpatient (BNVA) | payer MEDICARE, MEDICAID, SELFPAY | PROVIDERS: PCP Nurse Practitioner; Visit Provider Nurse Practitioner | DX: R05.9 Cough, unspecified (principal) | CPT/HCPCS: 71046; 85025; 87635 ==

== ENCOUNTER 2022-07-14 10:55 | Oncology outpatient (recurring) (ONCR) | payer MEDICARE, SELFPAY ==
[2022-07-14 11:32] LABS: Basophils % 0.4 %; Eosinophils # 0.1 10^3/uL (0.0-0.8); Eosinophils % 2.1 %; Hematocrit 38.2 % (42.0-52.0); Hemoglobin 12.5 g/dL (11.7-16.6); Lymphocytes % 41.1 %; Mean Corpuscular HGB Conc 32.7 g/dL (30.0-36.0); Mean Corpuscular Hemoglobin 30.4 pg (28.0-34.0); Mean Corpuscular Volume 92.9 fl (80-94); Mean Platelet Volume 10.9 fL (7.4-10.4); Monocytes # 0.3 10^3/uL (0.2-0.9); Monocytes % 12.4 %; Neutrophils # 1.05 10^3/uL (1.8-7.7); Neutrophils % 43.6 %; Nucleated Red Blood Cells % 0 %; Platelet Count 87 10^3/cmm (130-400); Red Blood Count 4.11 10^6/uL (4.1-5.3); Red Cell Distribution Width 13.8 % (12.1-15.1); White Blood Count 2.4 10^3/uL (4.0-10.0)
[2022-07-14 11:54] LABS: Alanine Aminotransferase 14 U/L (0-41); Albumin Level 3.6 g/dL (3.5-5.2); Alkaline Phosphatase 108 U/L (40-130); Anion Gap 13.5 (5-19); Aspartate Amino Transferase 22 U/L (0-40); Blood Urea Nitrogen 19 mg/dL (8-23); Calcium 9.6 mg/dL (8.5-10.5); Carbon Dioxide 29 mmol/L (22-29); Chloride 101 mmol/L (98-107); Globulin 3.4 g/dL (1.3-4.6); Glucose 123 mg/dL (65-115); Osmolality Calculated 292 mOsm/kg (285-295); Potassium 4.5 mmol/L (3.5-5.1); Prostate Specific Antigen 0.726 ng/mL (0-4); Sodium 139 mmol/L (136-145); Testosterone Total 19.7 ng/dL (193-740); Total Bilirubin 0.6 mg/dL (0.15-1.2)
[2022-07-14] MEDS: leuprolide 22.5 mg Kit IM (13:42)
== END 2022-08-01 23:59 | disposition home or self-care (01) ==
PROVIDERS: PCP Nurse Practitioner; Referring Provider Nurse Practitioner; Visit Provider Internal Medicine Medical Oncology
DX: C61 Malignant neoplasm of prostate; C79.51 Secondary malignant neoplasm of bone; Z79.818 Long term (current) use of other agents affecting estrogen receptors and estrogen levels; Z79.899 Other long term (current) drug therapy
CPT/HCPCS: 36415; 80053; 84153; 84403; 85025; 96402; 99214; J9217

== ENCOUNTER 2022-10-16 11:15 | Oncology outpatient (recurring) (ONCR) | payer MEDICARE, SELFPAY ==
[2022-10-16 11:38] LABS: Basophils % 0.5 %; Eosinophils # 0.1 10^3/uL (0.0-0.8); Eosinophils % 1.4 %; Hematocrit 40.2 % (42.0-52.0); Lymphocytes # 1.3 10^3/uL (0.8-4.8); Lymphocytes % 34.5 %; Mean Corpuscular HGB Conc 32.3 g/dL (30.0-36.0); Mean Corpuscular Hemoglobin 29.9 pg (28.0-34.0); Mean Corpuscular Volume 92.4 fl (80-94); Mean Platelet Volume 10.1 fL (7.4-10.4); Monocytes # 0.4 10^3/uL (0.2-0.9); Monocytes % 11.7 %; Neutrophils % 51.6 %; Nucleated Red Blood Cells % 0 %; Platelet Count 68 10^3/cmm (130-400); Red Blood Count 4.35 10^6/uL (4.1-5.3); Red Cell Distribution Width 12.6 % (12.1-15.1); White Blood Count 3.7 10^3/uL (4.0-10.0)
[2022-10-16 12:05] LABS: Alanine Aminotransferase 14 U/L (0-41); Albumin Level 3.8 g/dL (3.5-5.2); Alkaline Phosphatase 120 U/L (40-130); Anion Gap 10.9 (5-19); Aspartate Amino Transferase 20 U/L (0-40); Blood Urea Nitrogen 26 mg/dL (8-23); Calcium 10.2 mg/dL (8.5-10.5); Carbon Dioxide 31 mmol/L (22-29); Chloride 91 mmol/L (98-107); Globulin 3.2 g/dL (1.3-4.6); Glucose 137 mg/dL (65-115); Osmolality Calculated 273 mOsm/kg (285-295); Potassium 4.9 mmol/L (3.5-5.1); Prostate Specific Antigen 0.589 ng/mL (0-4); Sodium 128 mmol/L (136-145); Total Bilirubin 0.7 mg/dL (0.15-1.2)
[2022-10-16] MEDS: leuprolide 22.5 mg Kit IM (13:10)
[2022-10-16 15:11] LABS: Estmated Average Glucose 163; Hemoglobin A1C 7.3 % (4.0-6.0)
[2022-10-17 06:32] LABS: Chol HDL Ratio 3.51 mg/dL (1.0-5.00); Cholesterol 165 mg/dL (0-200); HDL Cholesterol 47 mg/dL (60-100); LDL Cholesterol Calculated 96 mg/dL (50-129); Triglycerides 108 mg/dL (0-150); VLDL Cholestrol Calculation 22 mg/dL (0-30)
[2022-10-17 06:38] LABS: Testosterone Total 18.5 ng/dL (193-740)
== END 2022-11-01 23:59 | disposition home or self-care (01) ==
PROVIDERS: PCP Nurse Practitioner; Referring Provider Nurse Practitioner; Visit Provider Internal Medicine Medical Oncology
DX: C61 Malignant neoplasm of prostate (principal); C79.51 Secondary malignant neoplasm of bone; Z79.818 Long term (current) use of other agents affecting estrogen receptors and estrogen levels; Z79.899 Other long term (current) drug therapy; M54.50 Low back pain, unspecified; E11.65 Type 2 diabetes mellitus with hyperglycemia; Z79.4 Long term (current) use of insulin
CPT/HCPCS: 36415; 80053; 80061; 83036; 84153; 84403; 85025; 96402; 99214; J9217

== ENCOUNTER 2022-12-23 12:06 | Emergency (ER) | payer MEDICARE, MEDICAID, SELFPAY ==
[2022-12-23] VITALS (47 sets, daily range): BP systolic 132–161; BP diastolic 78–93; PULSE 63–114; RESP 8–24; TEMP 36.8; O2SAT 87–97
--- NOTE | 2022-12-23 12:30 | XR_ITS ---
WS: [id number] Exam: XR chest 1V portable [id number] Date/Time of Exam: 12/23/2022 12:30 PM Reason For Exam: Palpitations Comparison 05/21/2022. Findings: The lungs are clear and fully expanded. Costophrenic angles are sharp. No infiltrates. Bronchovascula r relief appears normal. Cardiac silhouette is unremarkable. Bony elements are intact. XR/XR chest 1V portable [id number] IMPRESSION: Unremarkable chest radiograph.
--- NOTE | 2022-12-23 12:35 | ED_ITS ---
HPI - Chest Pain General: Chief Complaint: Chest Pain Stated Complaint: CP Time Seen by Provider: 12/23/22 12:07 History of Present Illness: This 72-year-old man was brought in by EMS for evaluation of tachycardia that was noticed when he went to his primary care provider's office this morning. Patient had gone to the office to get a refill of his medications and when they checked his vitals, his heart rate was found to be in the 160s. EMS was called and patient received 6 mg of IV adenosine and an additional 20 mg of IV Cardizem prior to arrival. Here in the ER, heart rate is in the 80s with occasional PVCs. Patient denies chest pain or shortness of breath. He did add that when he was at his primary care physician's office, he felt some tightness in his chest. Patient has no prior history of A-fib or SVTs. Review of Systems Const: Denies: chills, body aches or change in appetite Eyes: Denies: change in vision or eye discharge ENMT: Denies: throat pain, dental pain or nasal discharge Card: Reports: other (Chest tightness) : Denies: dysuria Musc: Denies: neck pain or back pain Neuro: Denies: headache(s) or weakness in extremities Psych: Denies: depression Ramón/Lymph: Denies: easy bruising All/Imm: Denies: urticaria, tongue swelling or facial swelling PFSH ED PFSH: Medical History Coronary artery disease Degenerative arthritis Degenerative joint disease of spine History of gout Hyperlipidemia, unspecified Hypertension Medical marijuana use Obesity (BMI 30-39.9) Prostate cancer Radiation cystitis Seasonal allergies Thrombocytopenia Type 2 diabetes mellitus Surgical History History of back surgery Lumbar laminectomy for ruptured disc History of colon resection due to diverticulitis with colostomy resection 1985 History of coronary angioplasty (2004) With stent placement x 2 History of nephrectomy left History of shoulder surgery Right shoulder repair History of skin graft [place] Status post ORIF of fracture of ankle Trimalleolar fracture of the right ankle Family History Brother Heart disease Mother Cancer Father CAD (coronary artery disease) Grandfather CAD (coronary artery disease) Grandmother Dementia Other Diabetes Hyperlipidemia Hypertension Lung disease Respiratory illness Denies family history of Clotting disorder Psychiatric illness Chronic kidney disease (CKD) Suicide Anesthesia complication Bleeding disorder Stroke Social History Smoking and tobacco status: never smoked Second hand smoke exposure: No Smoking risk assessment/counseling performed?: No Alcohol intake: current Alcohol intake frequency: holidays/special occasions only Desire information about alcohol rehabilitation?: No Counseling given: No Desire information about substance/drug rehabilitation?: No Counseling given: No Adopted: No Caregiver/support person: No Lives independently: Yes Household members: none Marital status: Single service: No Current occupational status: retired Current occupational exposures/hazards: No Current gender identity: Male Physical Exam Const: COMMON NORMALS: no acute distress, patient oriented x3, no limitations and alert HENMT: COMMON NORMALS: normocephalic HEAD & SCALP: normocephalic Eye: COMMON NORMALS: EOMs intact bilaterally Neck/C-Spine: COMMON NORMALS: full ROM and supple Chest: COMMONS NORMALS: normal inspection of the chest Resp: COMMON NORMALS: normal respiratory effort, No retractions, No use of accessory muscles and clear to auscultation bilaterally AUSCULTATION: clear to auscultation bilaterally Cardio: COMMON NORMALS: regular rate and No murmurs present (Cardio) RATE: regular rate OTHER: Normal rate, irregular rhythm, no murmur. GI: COMMON NORMALS: Normal to inspection, nondistended, normoactive bowel sounds present and non-tender : COMMON NORMALS: Yes no CVA tenderness BLADDER/KIDNEY EXAM: Yes no CVA tenderness Back/Pelvis: COMMON NORMALS: no CVA tenderness and no thoracic nor lumbar tenderness Extremity: GENERAL: Yes normal exam except as noted Neuro: COMMON NORMALS: patient oriented x3 and no focal motor deficits SENSORIUM/ORIENTATION: Yes alert Psych: COMMON NORMALS: mental status grossly normal and cooperative Course Vital Signs: Vital signs: Vital Signs Temperature 98.2 F 12/23/22 12:11 Pulse Rate 87 12/23/22 12:11 Respiratory Rate 23 H 12/23/22 12:11 Blood Pressure 154/86 12/23/22 12:11 Pulse Oximetry 87 L 02/21/23 12:11 Oxygen Delivery Me thod 12/23/22 12:11 MDM - Chest Pain Medical Decision Making Medical decision making: Patient remained stable and with normal heart rate throughout his stay in the ER. Baseline troponin is 28 and repeat troponin 2 hours later is 26.6 with a delta of -1.64. Patient remained pain-free throughout this entire period I discussed the case with Dr. Car who noted that with a controlled heart rate and an unremarkable troponin, patient can be discharged home but he needs to be set up for a 30-day event monitor, after which he will be seen in the clinic. I explained this to patient who verbalized understanding and agrees with the plan. He was however advised to return if he develops chest pain that is constant and lasts for 30 minutes or more. He should also return with any new concerning symptoms. An order has been placed for case management to set him up for a 30-day event monitor and a cardiology clinic follow-up. Lab Data 12/23/22 12:20 12/23/22 12:20 Radiology Impressions Chest X-Ray 12/23/22 12:30 IMPRESSION: Unremarkable chest radiograph. Laboratory Results WBC 3.8 10^3/uL (4.0-10.0) L 12/23/22 12:20 RBC 5.15 10^6/uL (4.1-5.3) 12/23/22 12:20 Hgb 15.4 g/dL (11.7-16.6) 12/23/22 12:20 Hct 47.9 % (42.0-52.0) 12/23/22 12:20 MCV 93.0 fl (80-94) 12/23/22 12:20 MCH 29.9 pg (28.0-34.0) 12/23/22 12:20 MCHC 32.2 g/dL (30.0-36.0) 12/23/22 12:20 RDW 13.4 % (12.1-15.1) 12/23/22 12:20 Plt Count 83 10^3/cmm (130-400) L 12/23/22 12:20 MPV 11.3 fL (7.4-10.4) H 12/23/22 12:20 Neut % (Auto) 64.3 % 12/23/22 12:20 Lymph % (Auto) 21.8 % 12/23/22 12:20 [place] % (Auto) 12.3 % 12/23/22 12:20 Eos % (Auto) 0.8 % 12/23/22 12:20 Baso % (Auto) 0.5 % 12/23/22 12:20 Neut # (Auto) 2.45 10^3/uL (1.8-7.7) 12/23/22 12:20 Lymph # (Auto) 0.8 10^3/uL (0.8-4.8) 12/23/22 12:20 [place] # (Auto) 0.5 10^3/uL (0.2-0.9) 12/23/22 12:20 Eos # (Auto) 0.0 10^3/uL (0.0-0.8) 12/23/22 12:20 Baso # (Auto) 0.0 10^3/uL (0.0-0.1) 12/23/22 12:20 Nucleated RBC % (auto) 0 % 12/23/22 12:20 Nucleated RBCs # 0.0 /100WBC 12/23/22 12:20 Sodium 136 mmol/L (136-145) 12/23/22 12:20 Potassium 4.3 mmol/L (3.5-5.1) 12/23/22 12:20 Chloride 96 mmol/L (98-107) L 12/23/22 12:20 Carbon Dioxide 26 mmol/L (22-29) 12/23/22 12:20 Anion Gap 18.3 (5-19) 12/23/22 12:20 BUN 13 mg/dL (8-23) 12/23/22 12:20 Creatinine 0.8 mg/dL (0.7-1.2) 12/23/22 12:20 GFR Calculation Not Reportable 12/23/22 12:20 Glucose 145 mg/dL (65-115) H 12/23/22 12:20 Calculated Osmolality 285 mOsm/kg (285-295) 12/23/22 12:20 Calcium 10.2 mg/dL (8.5-10.5) 12/23/22 12:20 Total Bilirubin 1.1 mg/dL (0.15-1.2) 12/23/22 12:20 AST 25 U/L (0-40) 12/23/22 12:20 ALT 16 U/L (0-41) 12/23/22 12:20 Alkaline Phosphatase 129 U/L (40-130) 12/23/22 12:20 Troponin T Baseline 28 ng/L (0-15) H 12/23/22 12:20 Troponin T 120 Minute 26.36 ng/L (0-15) H 12/23/22 14:50 Delta Troponin T -1.64 ABS# (0-10) L 12/23/22 14:50 Total Protein 7.5 g/dL (6.6-8.7) 12/23/22 12:20 Albumin 3.9 g/dL (3.5-5.2) 12/23/22 12:20 Globulin 3.6 g/dL (1.3-4.6) 12/23/22 12:20 Discharge Plan Discharge Patient Disposition: Home Clinical Impression: Heart palpitations, Tachycardia Condition: Stable Prescriptions: No Action (DME) lancets 30 gauge misc See Rx Instructions .ROUTE .MEDSUPPLY Qty: 25 Rx Instructions: As directed (DME) pen needle, diabetic [BD Ultra-Fine [place] Pen Needle] 32 gauge x 5/32 needle See Rx Instructions .ROUTE .MEDSUPPLY Qty: 200 5RF Rx Instructions: 4 times day albuterol sulfate [Ventolin HFA] 90 mcg/actuation HFA aerosol inhaler 2 puff inhalation Q6H PRN (Reason: shortness of breath or wheezing) Qty: 8.5 0RF Fish Oil 100-160-1,000 mg capsule 1 cap PO BID (DME) oxygen portable See Rx Instructions .Route .MEDSUPPLY Qty: 1 0RF Rx Instructions: As directed Oxygen 24 hour w/portable 2liters n/c 99 months atorvastatin [Lipitor] 40 mg tablet 40 mg PO DAILY Qty: 90 0RF cetirizine [Zyrtec] 10 mg tablet 10 mg PO DAILY PRN (Reason: allergy symptoms) Qty: 90 0RF insulin aspart U-100 [Novolog FlexPen U-100 Insulin] 100 unit/mL (3 mL) insulin pen See Rx Instructions SUBCUT TID Qty: 15 2RF Rx Instructions: 3-24 SUBCUT three times daily; follow sliding scale Levemir FlexTouch U-100 Insuln 100 unit/mL (3 mL) insulin pen 60 unit SUBCUT DAILY Qty: 15 2RF isosorbide mononitrate 60 mg tablet extended release 24 hr 60 mg PO BID Qty: 180 0RF lisinopril 10 mg tablet 10 mg PO DAILY Qty: 90 0RF metoprolol tartrate 100 mg tablet 100 mg PO BID Qty: 180 0RF lidocaine 5 % adhesive patch,medicated 1 patch topical DAILY Qty: 30 1RF Rx Instructions: leave on most painful area for up to 12 hrs, and remove for 12 hours nitroglycerin 0.4 mg tablet, sublingual 0.4 mg sublingual Q5M PRN (Reason: chest pain) Qty: 100 1RF Rx Instructions: do not exceed 3 doses per episode hydrocodone-acetaminophen 5-325 mg tablet 1 tab PO Q4H PRN (Reason: pain) 30 Days Qty: 30 0RF (DME) blood-glucose meter [Accu-Chek Kaley Plus Meter] Misc See Rx Instructions .Route Qty: 1 0RF Rx Instructions: As directed (DME) Accu-Chek Kaley Plus test strp Strip See Rx Instructions .Route Qty: 100 5RF Rx Instructions: use 3 times day (DME) lancets [Accu-Chek Softclix Lancets] Misc See Rx Instructions .Route Qty: 200 5RF Rx Instructions: check 3 times day duloxetine [Cymbalta] 20 mg capsule,delayed release(DR/EC) 20 mg PO BID Qty: 60 1RF Xtandi 40 mg capsule 120 mg PO DAILY Qty: 84 0RF prochlorperazine maleate [Compazine] 10 mg tablet 10 mg PO Q4H PRN (Reason: Mild Nausea) Qty: 30 3RF lorazepam 1 mg tablet 0.5 - 1 mg PO Q6H PRN (Reason: Severe Nausea) Qty: 30 3RF tamsulosin 0.4 mg capsule 0.4 mg PO BID furosemide 20 mg tablet 20 mg PO EVERY OTHER DAY Ozempic 0.25 mg or 0.5 mg(2 mg/1.5 mL) pen injector 0.25 mg SUBCUT Q7D Discharge Orders: Discharge ED (Routine); Ordered 12/23/22 Ordered By: Doni Rodriguez Referrals: Holger Robb, BLOOD BANK CALENDAR CONTROL CLERK-C [Primary Care Provider] - Discharge Diet: Usual diet Discharge Activity: Resume usual activity Patient Instructions: Opioid Safety, Pain Management Activity Restrictions/Additional Instructions: * Continue taking your usual home medications. * You ella be set up for an outpatient 30-day event monitor. manager telecom will arrange this and inform you on when to come in for it. After that, you will have an appointment to follow-up with our immigration patrol inspector in the clinic. * Follow-up with your primary care physician within a week for reevaluation. * Return if you develop any new or worsening symptoms. Coding Level of Care Code ED Cleaning Team Member for Fantasma Romero
--- NOTE | 2022-12-23 12:39 | PC.NURSE ---
PT PLACED ON CONTINUOUS SPO2, NIBP, AND CM.
--- NOTE | 2022-12-23 12:49 | ECG_ITS ---
[facility] Test Date: 2022-12-23 Pat Name: Rj Robbins Department: Room: Gender: Male Wellness Coordinator: : 1950 Requested By: Doni Segura Order Number: [id number] Reading MD: John Car M.D. Measurements Intervals [place] Rate: 75 P: 0 CA: 0 QRS: -31 QRSD: 106 T: 100 QT: 383 QTc: 429 Interpretive Statements SINUS RHYTHM WITH OCCASIONAL PVCs LEFT AXIS DEVIATION [QRS AXIS < -30] MODERATE INTRAVENTRICULAR CONDUCTION DELAY [105+ ms QRS DURATION, 80+ ms Q/S IN V1/V2, NO Q AND 60+ ms R IN I/aVL/V5/V6] ABNORMAL QRS-T ANGLE [QRS-T AXIS DIFFERENCE > 60] No previous ECG available for comparison Electronically Signed On 12-23-2022 17:34:56 SOFTWARE REQUIREMENTS ENGINEER by John Car M.D. [email or web address]
[2022-12-23 12:53] LABS: Basophils % 0.5 %; Eosinophils % 0.8 %; Hematocrit 47.9 % (42.0-52.0); Hemoglobin 15.4 g/dL (11.7-16.6); Lymphocytes # 0.8 10^3/uL (0.8-4.8); Lymphocytes % 21.8 %; Mean Corpuscular HGB Conc 32.2 g/dL (30.0-36.0); Mean Corpuscular Hemoglobin 29.9 pg (28.0-34.0); Mean Platelet Volume 11.3 fL (7.4-10.4); Monocytes # 0.5 10^3/uL (0.2-0.9); Monocytes % 12.3 %; Neutrophils # 2.45 10^3/uL (1.8-7.7); Neutrophils % 64.3 %; Nucleated Red Blood Cells % 0 %; Platelet Count 83 10^3/cmm (130-400); Red Blood Count 5.15 10^6/uL (4.1-5.3); Red Cell Distribution Width 13.4 % (12.1-15.1); White Blood Count 3.8 10^3/uL (4.0-10.0)
[2022-12-23 13:09] LABS: Troponin(5th) Baseline 28 ng/L (0-15)
[2022-12-23 13:12] LABS: Alanine Aminotransferase 16 U/L (0-41); Albumin Level 3.9 g/dL (3.5-5.2); Alkaline Phosphatase 129 U/L (40-130); Anion Gap 18.3 (5-19); Aspartate Amino Transferase 25 U/L (0-40); Blood Urea Nitrogen 13 mg/dL (8-23); Calcium 10.2 mg/dL (8.5-10.5); Carbon Dioxide 26 mmol/L (22-29); Chloride 96 mmol/L (98-107); Globulin 3.6 g/dL (1.3-4.6); Glucose 145 mg/dL (65-115); Osmolality Calculated 285 mOsm/kg (285-295); Potassium 4.3 mmol/L (3.5-5.1); Sodium 136 mmol/L (136-145); Total Bilirubin 1.1 mg/dL (0.15-1.2); Total Protein 7.5 g/dL (6.6-8.7)
--- NOTE | 2022-12-23 14:30 | ECG_ITS ---
[facility] Test Date: 2022-12-23 Pat Name: Rj Robbins Department: Room: Gender: Male Otolaryngology Rep: : 1950 Requested By: Doni Segura Order Number: [id number] Reading MD: John Car M.D. Measurements Intervals [place] Rate: 108 P: -34 MS: 156 QRS: -9 QRSD: 109 T: 117 QT: 380 QTc: 511 Interpretive Statements SINUS TACHYCARDIA WITH OCCASIONAL VENTRICULAR PREMATURE COMPLEXES SEPTAL MYOCARDIAL INFARCTION , PROBABLY OLD [40+ ms Q WAVE IN V1/V2] MODERATE T-WAVE ABNORMALITY, CONSIDER LATERAL ISCHEMIA [-0.1+ mV T-WAVE IN I/aVL/V5/V6] Compared to ECG 12/23/2022 12:49:41 Ventricular premature complex(es) now present Myocardial infarct finding now present T-wave abnormality now present Possible ischemia now present Atrial fibrillation no longer present Left-axis deviation no longer present Intraventricular conduction delay no longer present Electronically Signed On 12-23-2022 17:39:26 TRUSS PULLER HELPER by John Car M.D. [id number]
[2022-12-23 15:23] LABS: Troponin 5 2HR 26.36 ng/L (0-15)
[2022-12-23 15:27] LABS: Troponin 5 2HR Delta -1.64 ABS# (0-10)
--- NOTE | 2022-12-24 09:58 | DCPLANNER ---
Addendum entered by Leah Momin 02/26/23 09:02: Patient had a follow up appointment scheduled with heart care - patient did attend appointment. Addendum entered by Leah Momin 01/08/23 11:48: Patient has a follow up appointment scheduled with [facility] for Saturday, February 25, 2023 at 2:[address] Kebede. Clinic will call patient with appointment information. Addendum entered by Leah Momin 01/08/23 11:47: Patient had a follow up appointment scheduled with heart care for a 30 day event monitor - patient did attend appointment. Original Note: stock manager had message to schedule a follow up appointment for patient with cardiology. stock manager sent patients information to the front office staff at [facility]. Patients information will be printed and reviewed. Clinic will call patient with appointment information.
== END 2022-12-23 17:37 | disposition home or self-care (01) ==
PROVIDERS: Emergency Provider Family Medicine; PCP Nurse Practitioner
DX: R00.0 Tachycardia, unspecified (principal); Z79.4 Long term (current) use of insulin; I25.10 Atherosclerotic heart disease of native coronary artery without angina pectoris; E78.5 Hyperlipidemia, unspecified; I10 Essential (primary) hypertension; E11.9 Type 2 diabetes mellitus without complications; Z85.46 Personal history of malignant neoplasm of prostate; Z95.5 Presence of coronary angioplasty implant and graft; Z90.5 Acquired absence of kidney
CPT/HCPCS: 36415; 71045; 80053; 84484; 85025; 93005; 99285

== ENCOUNTER → 2022-12-24 09:19 | Outpatient (BNVA) | payer MEDICARE, MEDICAID, SELFPAY | PROVIDERS: PCP Nurse Practitioner; Visit Provider Nurse Practitioner | DX: E78.2 Mixed hyperlipidemia (principal); J30.2 Other seasonal allergic rhinitis; E11.40 Type 2 diabetes mellitus with diabetic neuropathy, unspecified; E11.65 Type 2 diabetes mellitus with hyperglycemia; I10 Essential (primary) hypertension; E11.9 Type 2 diabetes mellitus without complications; Z79.4 Long term (current) use of insulin | CPT/HCPCS: 80061; 82043; 83036; 84443 ==

== ENCOUNTER → 2023-01-01 13:03 | Outpatient (BNVA) | payer MEDICARE, MEDICAID, SELFPAY | PROVIDERS: PCP Nurse Practitioner; Visit Provider Internal Medicine Cardiovascular Disease | DX: R07.9 Chest pain, unspecified (principal) | CPT/HCPCS: 93270 ==

== ENCOUNTER 2023-01-15 11:04 | Oncology outpatient (recurring) (ONCR) | payer MEDICARE, MEDICAID, SELFPAY ==
[2023-01-15 12:05] LABS: Basophils % 0.5 %; Eosinophils % 0.8 %; Hematocrit 39.6 % (42.0-52.0); Lymphocytes # 1.3 10^3/uL (0.8-4.8); Mean Corpuscular HGB Conc 32.8 g/dL (30.0-36.0); Mean Corpuscular Volume 91.2 fl (80-94); Mean Platelet Volume 10.4 fL (7.4-10.4); Monocytes # 0.4 10^3/uL (0.2-0.9); Monocytes % 10.1 %; Neutrophils # 2.13 10^3/uL (1.8-7.7); Neutrophils % 55.3 %; Nucleated Red Blood Cells % 0 %; Platelet Count 74 10^3/cmm (130-400); Red Blood Count 4.34 10^6/uL (4.1-5.3); Red Cell Distribution Width 13.2 % (12.1-15.1); White Blood Count 3.9 10^3/uL (4.0-10.0)
[2023-01-15 12:36] LABS: Alanine Aminotransferase 13 U/L (0-41); Albumin Level 3.4 g/dL (3.5-5.2); Alkaline Phosphatase 91 U/L (40-130); Anion Gap 13.4 (5-19); Aspartate Amino Transferase 24 U/L (0-40); Blood Urea Nitrogen 11 mg/dL (8-23); Calcium 9.5 mg/dL (8.5-10.5); Carbon Dioxide 29 mmol/L (22-29); Chloride 102 mmol/L (98-107); Estmated Average Glucose 137; Globulin 3.1 g/dL (1.3-4.6); Glucose 49 mg/dL (65-115); Hemoglobin A1C 6.4 % (4.0-6.0); Osmolality Calculated 287 mOsm/kg (285-295); Potassium 4.4 mmol/L (3.5-5.1); Prostate Specific Antigen 0.963 ng/mL (0-4); Sodium 140 mmol/L (136-145); Total Bilirubin 0.7 mg/dL (0.15-1.2); Total Protein 6.5 g/dL (6.6-8.7)
[2023-01-15] MEDS: leuprolide 22.5 mg Kit IM (14:55)
== END 2023-01-30 23:59 | disposition home or self-care (01) ==
PROVIDERS: PCP Nurse Practitioner; Referring Provider Nurse Practitioner; Visit Provider Internal Medicine Medical Oncology
DX: C61 Malignant neoplasm of prostate (principal); C79.51 Secondary malignant neoplasm of bone; Z79.818 Long term (current) use of other agents affecting estrogen receptors and estrogen levels; Z79.899 Other long term (current) drug therapy; M54.50 Low back pain, unspecified; R19.7 Diarrhea, unspecified; Z79.891 Long term (current) use of opiate analgesic
CPT/HCPCS: 36415; 80053; 83036; 84153; 85025; 96402; 99214; J9217

== ENCOUNTER 2023-02-25 | Outpatient (CLI) | payer MEDICARE, MEDICAID, SELFPAY | END 2023-02-25 00:01 | disposition home or self-care (01) | LOC: RAD 03-09 11:46 | PROVIDERS: PCP Nurse Practitioner; Visit Provider Internal Medicine Cardiovascular Disease | DX: I25.118 Atherosclerotic heart disease of native coronary artery with other forms of angina pectoris (principal); R07.89 Other chest pain; I10 Essential (primary) hypertension; E78.5 Hyperlipidemia, unspecified; Z79.899 Other long term (current) drug therapy; E11.65 Type 2 diabetes mellitus with hyperglycemia; Z79.4 Long term (current) use of insulin; R06.02 Shortness of breath | CPT/HCPCS: 99204 ==

== ENCOUNTER 2023-03-31 12:41 | Outpatient (CLI) | payer MEDICARE, MEDICAID, SELFPAY ==
--- NOTE | 2023-03-31 13:00 | USCV_ITS ---
Rj Robbins Age: 73 Gender: M : 1950 Exam Date: 03/31/2023 13:39 Ordering Phys: Galdino Kebede MD ([email or web address]) Technologist: Adam Stuart [place] [facility]ication: chest pain BP: 113 / 68 HR: 57 Rhythm: Sinus Technical Quality: Adequate MEASUREMENTS (Male / Female) Normal Values 2D ECHO LVOT Diameter 2.0 cm LV Ejection Fraction MOD 2C 64.4 % LV Ejection Fraction 2C AL 66.6 % LA Diameter 3.6 cm LA Width 4.2 cm LA Height 4.8 cm RA Width 3.6 cm RA Height 4.7 cm Aorta at Sinotubular Diameter 2.2 cm IVC Diameter 1.7 cm M-MODE Aortic Annulus Diameter 3.2 cm LA Ao Ratio MM 1.2 MV E Point Septal Separation 0.8 cm DOPPLER AV Peak Velocity 144.7 cm/s LVOT Peak Velocity 118.0 cm/s AV Area Cont Eq vti 2.1 cm squared AV Area Cont Eq pk 2.7 cm squared MV Peak Velocity 77.0 cm/s MV Area PHT 3.6 cm squared Mitral E to A Ratio 0.7 MV E' Velocity 26.5 cm/s Mitral E to MV E' Ratio 7.3 Mitral E to LV E' Lateral Ratio 6.4 Mitral E to LV E' Septal Ratio 8.3 TR Peak Velocity 270.4 cm/s TR Peak Gradient 29.3 mmHg TR Mean Velocity 193.7 cm/s TR Mean Gradient 17.0 mmHg TR Velocity Time Integral 71.3 cm Right Atrial Pressure 3.0 mmHg Pulmonary Artery Systolic Pressu 32.3 mmHg PV Peak Velocity 108.3 cm/s RV Acceleration Time 0.1 s RV Ejection Time 0.3 s RV AcT/ET 0.3 FINDINGS Left Ventricle Normal left ventricular size, systolic function with no regional wall motion abnormalities. Left ventricular ejection fraction is estimated at 60 %. Grade I diastolic dysfunction (abnormal relaxation filling pattern), normal to mildly elevated filling pressures. Right Ventricle Normal right ventricular size and systolic function. Right ventricular systolic pressure 46 mmHg. Right Atrium Normal right atrial size. Left Atrium Mildly increased left atrial size. Mitral Valve Structurally normal mitral valve. No mitral valve stenosis. Trace mitral valve regurgitation. Aortic Valve Structurally normal trileaflet aortic valve. No aortic valve stenosis. No aortic valve regurgitation. Tricuspid Valve Structurally normal tricuspid valve. Trace tricuspid valve regurgitation. Pulmonic Valve Pulmonic valve not well visualized. No pulmonary valve stenosis. No significant pulmonary valve regurgitation. Pericardium No pericardial effusion. Aorta Normal size aortic root and proximal ascending aorta. IVC Normal IVC dimension with >50% respiratory change of the inferior vena cava. CONCLUSIONS 1. Normal left ventricular size, systolic function with no regional wall motion abnormalities. Left ventricular ejection fraction is estimated at 60 %. Grade I diastolic dysfunction (abnormal relaxation filling pattern), normal to mildly elevated filling pressures. 2. Pulmonary artery pressure estimated at 46 mm Hg. 3. No prior similar studies to compare. Jacque Jones MD (Electronically Signed) Final Date: 05 April 2023 14:42 S
== END 2023-03-31 12:42 | disposition home or self-care (01) ==
LOC: RAD 12:46
PROVIDERS: PCP Nurse Practitioner; Visit Provider Internal Medicine Cardiovascular Disease
DX: I25.118 Atherosclerotic heart disease of native coronary artery with other forms of angina pectoris (principal); I51.89 Other ill-defined heart diseases
CPT/HCPCS: 93306

== ENCOUNTER → 2023-04-01 13:42 | Outpatient (BNVA) | payer MEDICARE, MEDICAID, SELFPAY | PROVIDERS: PCP Nurse Practitioner; Visit Provider Nurse Practitioner | DX: E11.65 Type 2 diabetes mellitus with hyperglycemia (principal); Z79.4 Long term (current) use of insulin; M54.50 Low back pain, unspecified | CPT/HCPCS: 72100; 80053; 82043; 83036; 84443 ==

== ENCOUNTER 2023-04-13 12:47 | Oncology outpatient (recurring) (ONCR) | payer MEDICARE, MEDICAID, SELFPAY ==
[2023-04-13 12:57] VITALS: BP 132/84; PULSE 63; RESP 18; TEMP 35.6; O2SAT 93
[2023-04-13 13:09] LABS: Basophils % 0.2 %; Eosinophils # 0.1 10^3/uL (0.0-0.8); Eosinophils % 2.2 %; Hemoglobin 13.6 g/dL (11.7-16.6); Lymphocytes # 1.6 10^3/uL (0.8-4.8); Lymphocytes % 38.5 %; Mean Corpuscular HGB Conc 33.2 g/dL (30.0-36.0); Mean Corpuscular Hemoglobin 30.3 pg (28.0-34.0); Mean Corpuscular Volume 91.3 fl (80-94); Mean Platelet Volume 10.4 fL (7.4-10.4); Monocytes # 0.5 10^3/uL (0.2-0.9); Monocytes % 11.7 %; Neutrophils % 47.2 %; Nucleated Red Blood Cells % 0 %; Platelet Count 85 10^3/cmm (130-400); Red Blood Count 4.49 10^6/uL (4.1-5.3); Red Cell Distribution Width 13.4 % (12.1-15.1)
[2023-04-13 13:33] LABS: Alanine Aminotransferase 10 U/L (0-41); Albumin Level 3.6 g/dL (3.5-5.2); Alkaline Phosphatase 121 U/L (40-130); Anion Gap 13.2 (5-19); Aspartate Amino Transferase 19 U/L (0-40); Blood Urea Nitrogen 18 mg/dL (8-23); Calcium 9.6 mg/dL (8.5-10.5); Carbon Dioxide 30 mmol/L (22-29); Chloride 100 mmol/L (98-107); Globulin 3.2 g/dL (1.3-4.6); Glucose 131 mg/dL (65-115); Osmolality Calculated 292 mOsm/kg (285-295); Potassium 4.2 mmol/L (3.5-5.1); Prostate Specific Antigen 0.697 ng/mL (0-4); Sodium 139 mmol/L (136-145); Total Bilirubin 0.7 mg/dL (0.15-1.2); Total Protein 6.8 g/dL (6.6-8.7)
[2023-04-13] MEDS: leuprolide 22.5 mg Kit IM (15:09)
== END 2023-05-01 23:59 | disposition home or self-care (01) ==
PROVIDERS: PCP Nurse Practitioner; Visit Provider Internal Medicine Medical Oncology
DX: C61 Malignant neoplasm of prostate (principal)
CPT/HCPCS: 80053; 84153; 85025; 96402; J9217

== ENCOUNTER 2023-04-30 07:07 | Outpatient (CLI) | payer MEDICARE, MEDICAID, SELFPAY ==
[2023-04-30 07:18] VITALS: BMI 585.8
--- NOTE | 2023-04-30 07:19 | NMCV_ITS ---
NM benson perf SPECT r/s* [id number] Rj Robbins Age: 73 Gender: M : 1950 Exam Date: 04/30/2023 08:31 Ordering Phys: Galdino Kebede MD ([email or web address]) Technologist: YOUSIF David Exam [facility]: [facility] Indications: CORONARY ANGIOPLASTY STATUS, CHEST PAIN, SHORTNESS OF BREATH, ATHEROSCLEROTIC HEART DISEASE STRESS TEST Please see separate stress test report in Ephiphany for full findings IMAGE PROTOCOL Rest/Stress 1 Lexiscan Day Radiopharmaceutical Dose (mCi) Administration Site Administered by Rest: Tc-99m 10.6 IV YOUSIF Dove Sestamipattie Stress:Tc-99m 32.8 IV YOUSIF Dove Sestamibi Rest: 30-Apr-2023 60 Discovery 630 Stress: 30-Apr-2023 30 Discovery 630 0.4mg Lexiscan. Supine position only as patient was unable to lay prone. SPECT RESULTS Technical Quality: Excellent Raw Data Analysis: Normal Image Corrections: No attenuation or motion correction applied Summed Stress Score: 7 Summed Rest Score: 5 Summed Difference Score: 2 PERFUSION FINDINGS There is a medium sized area of prior infarct with large area of bladimir-infarct ischemia in left circumflex artery territory. FUNCTIONAL RESULTS (calculated via Gated SPECT) Stress Image LV EF (%): 70 Stress EDV (mL):109 TID: 1.14 Stress ESV (mL):33 FUNCTIONAL FINDINGS: There is normal left ventricular systolic function. IMPRESSIONS 1. Abnormal myocardial perfusion imaging with medium sized area of prior infarct with large area of bladimir-infarct ischemia noted in the left circumflex artery territory. 2. LV systolic function is normal John Car MD (Electronically Signed) Final Date: 30 April 2023 14:39 S
--- NOTE | 2023-04-30 07:19 | ECG_ITS ---
[facility] Test Date: 2023-04-30 Pat Name: Rj Robbins Department: Room: Gender: Male Resident Physician In Radiology: : 1950 Requested By: Galdino Kebede Order Number: [id number] Rachel MD: Galdino Kebede M.D. Interpretive Statements NAME OF STUDY: LEXISCAN SESTAMIBI STRESS TEST INDICATION: Chest Pain RESULTS TO Erasmo SIBLEY PROCEDURE: At the baseline, the EKG revealed atrial fibrillation with a slow ventricular response rate. Diffuse nonspecific T wave changes. Nonspecific IVCD minimal left axis deviation. The baseline heart was 58 bpm with a blood pressue of 136/82 mm of Hg Lexiscan was infused over a period of 20 seconds. A total of 0.4 milligrams of Lexiscan was infused. The stress phase was continued for a total of 5 minutes. Heart rate at the end of the stress phase was 64 bpm with a blood pressure 127/66 mm of Hg. The EKG at the peak infusion revealed no significant changes. Sestamibi was injected 20 seconds after the Lexiscan infusion. Heart rate at the end of the recovery phase was 68 bpm with a blood pressure of 124/70 mm of Hg. CONCLUSION: 1. No significant EKG changes with the LexiScan infusion 2. No LexiScan induced chest pain or cardiac arrhythmia 3. Normal blood pressure and heart rate response 4. Sestamibi/sestamibi perfusion scan pending; see separate report. Electronically Signed On 05-02-2023 15:34:26 CDT by Galdino Kebede M.D. [id number]
[2023-04-30] MEDS: regadenoson 0.4 Mg/5 ml Syringe IVP (09:11)
[2023-04-30 09:33] VITALS: BP 127/84; PULSE 72
== END 2023-04-30 07:08 | disposition home or self-care (01) ==
LOC: CDL 07:08
PROVIDERS: PCP Nurse Practitioner; Visit Provider Internal Medicine Cardiovascular Disease
DX: Z98.61 Coronary angioplasty status (principal); R07.9 Chest pain, unspecified; R06.02 Shortness of breath; I25.10 Atherosclerotic heart disease of native coronary artery without angina pectoris; I25.2 Old myocardial infarction
CPT/HCPCS: 36415; 78452; 93017; 96374; A9500; J2785

== ENCOUNTER → 2023-06-16 15:48 | Outpatient (BNVA) | payer MEDICARE, MEDICAID, SELFPAY | PROVIDERS: PCP Nurse Practitioner; Visit Provider Nurse Practitioner | DX: E11.9 Type 2 diabetes mellitus without complications (principal) | CPT/HCPCS: 80053; 80061; 83036 ==

== ENCOUNTER 2023-07-07 07:56 | Oncology outpatient (recurring) (ONCR) | payer MEDICARE, MEDICAID, SELFPAY ==
[2023-07-07 08:01] VITALS: BMI 36.3
[2023-07-07 08:02] VITALS: BP 154/83; PULSE 61; RESP 18; TEMP 35.6; O2SAT 96
[2023-07-07 08:14] LABS: Basophils % 0.3 %; Eosinophils # 0.1 10^3/uL (0.0-0.8); Eosinophils % 1.5 %; Hematocrit 38.7 % (37-53); Lymphocytes % 29.9 %; Mean Corpuscular HGB Conc 32.8 g/dL (30-55); Mean Corpuscular Hemoglobin 30.7 pg (27-33); Mean Corpuscular Volume 93.5 fl (82-101); Mean Platelet Volume 10.5 fL (7.4-10.4); Monocytes # 0.4 10^3/uL (0.2-0.9); Monocytes % 12.5 %; Neutrophils # 1.83 10^3/uL (1.8-7.7); Neutrophils % 55.8 %; Nucleated Red Blood Cells % 0 %; Platelet Count 74 10^3/cmm (157-399); Red Blood Count 4.14 10^6/uL (3.85-5.65); Red Cell Distribution Width 13.2 % (12.1-15.1); White Blood Count 3.28 10^3/uL (3.29-11.43)
[2023-07-07 08:42] LABS: Alanine Aminotransferase 14 U/L (0-41); Albumin Level 3.7 g/dL (3.5-5.2); Alkaline Phosphatase 120 U/L (40-130); Anion Gap 11.2 (5-19); Aspartate Amino Transferase 22 U/L (0-40); Blood Urea Nitrogen 14 mg/dL (8-23); Calcium 9.6 mg/dL (8.5-10.5); Carbon Dioxide 31 mmol/L (22-29); Chloride 102 mmol/L (98-107); Globulin 2.9 g/dL (1.3-4.6); Glucose 128 mg/dL (65-115); Osmolality Calculated 292 mOsm/kg (285-295); Potassium 4.2 mmol/L (3.5-5.1); Prostate Specific Antigen 0.648 ng/mL (0-4); Sodium 140 mmol/L (136-145); Total Bilirubin 0.5 mg/dL (0.15-1.2); Total Protein 6.6 g/dL (6.6-8.7)
[2023-07-07 10:40] VITALS: BP 111/66; PULSE 62; RESP 17; TEMP 36.2; O2SAT 93
[2023-07-07] MEDS: leuprolide 22.5 mg Kit IM (10:43)
== END 2023-08-01 23:59 | disposition home or self-care (01) ==
PROVIDERS: PCP Nurse Practitioner; Visit Provider Internal Medicine Medical Oncology
DX: C61 Malignant neoplasm of prostate (principal); C79.51 Secondary malignant neoplasm of bone; M54.50 Low back pain, unspecified; R19.7 Diarrhea, unspecified; Z79.818 Long term (current) use of other agents affecting estrogen receptors and estrogen levels; Z79.891 Long term (current) use of opiate analgesic; Z79.899 Other long term (current) drug therapy
CPT/HCPCS: 36415; 80053; 84153; 85025; 96402; 99213; 99214; J9217

== ENCOUNTER → 2023-08-18 15:33 | Outpatient (BNVA) | payer MEDICARE, MEDICAID, SELFPAY | PROVIDERS: PCP Nurse Practitioner; Visit Provider Nurse Practitioner | DX: E11.9 Type 2 diabetes mellitus without complications (principal); R39.11 Hesitancy of micturition; C61 Malignant neoplasm of prostate | CPT/HCPCS: 80053; 83036; 84153; 85025 ==

== ENCOUNTER 2023-09-29 12:11 | Oncology outpatient (recurring) (ONCR) | payer MEDICARE, MEDICAID, SELFPAY ==
[2023-09-29 12:25] VITALS: BP 141/76; PULSE 82; RESP 20; TEMP 36.1; O2SAT 92
[2023-09-29 12:50] LABS: Basophils % 0.4 %; Eosinophils % 1.5 %; Hematocrit 41.7 % (37-53); Lymphocytes % 37.9 %; Mean Corpuscular HGB Conc 32.4 g/dL (30-55); Mean Corpuscular Hemoglobin 30.5 pg (27-33); Mean Corpuscular Volume 94.1 fl (82-101); Mean Platelet Volume 11.3 fL (7.4-10.4); Monocytes # 0.2 10^3/uL (0.2-0.9); Neutrophils # 1.36 10^3/uL (1.8-7.7); Neutrophils % 52.2 %; Nucleated Red Blood Cells % 0 %; Platelet Count 72 10^3/cmm (157-399); Red Blood Count 4.43 10^6/uL (3.85-5.65); Red Cell Distribution Width 13.2 % (12.1-15.1); White Blood Count 2.61 10^3/uL (3.29-11.43)
[2023-09-29 14:42] VITALS: BP 125/82; PULSE 60; RESP 18; TEMP 36.6; O2SAT 96
[2023-09-29] MEDS: leuprolide 22.5 mg Kit IM (14:44)
[2023-09-29 14:59] LABS: Alanine Aminotransferase 22 U/L (0-41); Albumin Level 3.7 g/dL (3.5-5.2); Alkaline Phosphatase 153 U/L (40-130); Anion Gap 12.4 (5-19); Aspartate Amino Transferase 24 U/L (0-40); Blood Urea Nitrogen 24 mg/dL (8-23); Calcium 9.7 mg/dL (8.5-10.5); Carbon Dioxide 31 mmol/L (22-29); Chloride 100 mmol/L (98-107); Glucose 305 mg/dL (65-115); Osmolality Calculated 304 mOsm/kg (285-295); Potassium 4.4 mmol/L (3.5-5.1); Prostate Specific Antigen 0.744 ng/mL (0-4); Sodium 139 mmol/L (136-145); Total Bilirubin 0.5 mg/dL (0.15-1.2); Total Protein 6.7 g/dL (6.6-8.7)
== END 2023-10-01 23:59 | disposition home or self-care (01) ==
PROVIDERS: Nurse Practitioner Family; PCP Nurse Practitioner; Visit Provider Internal Medicine Medical Oncology
DX: C61 Malignant neoplasm of prostate (principal); C79.51 Secondary malignant neoplasm of bone; M54.50 Low back pain, unspecified; R19.7 Diarrhea, unspecified; Z79.818 Long term (current) use of other agents affecting estrogen receptors and estrogen levels; Z79.891 Long term (current) use of opiate analgesic; Z79.899 Other long term (current) drug therapy; Z51.11 Encounter for antineoplastic chemotherapy
CPT/HCPCS: 36415; 80053; 84153; 85025; 96402; 99214; J9217

== ENCOUNTER → 2023-10-22 14:04 | Outpatient (BNVA) | payer MEDICARE, MEDICAID, SELFPAY | PROVIDERS: PCP Nurse Practitioner; Visit Provider Nurse Practitioner | DX: R31.9 Hematuria, unspecified (principal) | CPT/HCPCS: 81000; 87077; 87086; 87184 ==

== ENCOUNTER 2023-12-22 11:02 | Oncology outpatient (recurring) (ONCR) | payer MEDICARE, MEDICAID, SELFPAY ==
[2023-12-22 11:55] LABS: Basophils % 0.5 %; Eosinophils # 0.1 10^3/uL (0.0-0.8); Eosinophils % 1.2 %; Hematocrit 42.9 % (37-53); Lymphocytes # 1.5 10^3/uL (0.8-4.8); Lymphocytes % 34.9 %; Mean Corpuscular HGB Conc 33.8 g/dL (30-55); Mean Corpuscular Hemoglobin 30.4 pg (27-33); Mean Corpuscular Volume 89.9 fl (82-101); Mean Platelet Volume 10.9 fL (7.4-10.4); Monocytes # 0.4 10^3/uL (0.2-0.9); Monocytes % 10.2 %; Neutrophils # 2.28 10^3/uL (1.8-7.7); Nucleated Red Blood Cells % 0 %; Platelet Count 77 10^3/cmm (157-399); Red Blood Count 4.77 10^6/uL (3.85-5.65); Red Cell Distribution Width 13.2 % (12.1-15.1)
[2023-12-22 12:00] LABS: Alanine Aminotransferase 21 U/L (0-41); Albumin Level 3.8 g/dL (3.5-5.2); Alkaline Phosphatase 153 U/L (40-130); Anion Gap 16.2 (5-19); Aspartate Amino Transferase 27 U/L (0-40); Blood Urea Nitrogen 17 mg/dL (8-23); Calcium 9.6 mg/dL (8.5-10.5); Carbon Dioxide 26 mmol/L (22-29); Chloride 101 mmol/L (98-107); Globulin 3.4 g/dL (1.3-4.6); Glucose 168 mg/dL (65-115); Osmolality Calculated 293 mOsm/kg (285-295); Potassium 4.2 mmol/L (3.5-5.1); Prostate Specific Antigen 0.649 ng/mL (0-4); Sodium 139 mmol/L (136-145); Total Bilirubin 0.8 mg/dL (0.15-1.2); Total Protein 7.2 g/dL (6.6-8.7)
[2023-12-22 12:14] LABS: Estmated Average Glucose 151; Hemoglobin A1C 6.9 % (4.0-6.0)
[2023-12-22] MEDS: leuprolide 22.5 mg Kit IM (13:35)
== END 2023-12-31 23:59 | disposition home or self-care (01) ==
PROVIDERS: PCP Nurse Practitioner; Visit Provider Internal Medicine Medical Oncology
DX: C61 Malignant neoplasm of prostate (principal); C79.51 Secondary malignant neoplasm of bone; M54.50 Low back pain, unspecified; R19.7 Diarrhea, unspecified; Z79.818 Long term (current) use of other agents affecting estrogen receptors and estrogen levels; Z79.891 Long term (current) use of opiate analgesic; Z79.899 Other long term (current) drug therapy
CPT/HCPCS: 36415; 80053; 83036; 84153; 85025; 96401; 99214; J9217

== ENCOUNTER → 2024-02-23 14:12 | Outpatient (BNVA) | payer MEDICARE, MEDICAID, SELFPAY | PROVIDERS: PCP Nurse Practitioner; Visit Provider Nurse Practitioner | DX: M79.642 Pain in left hand (principal) | CPT/HCPCS: 73130; 84550 ==

== ENCOUNTER → 2024-03-07 11:27 | Outpatient (BNVA) | payer MEDICARE, MEDICAID, SELFPAY | PROVIDERS: PCP Nurse Practitioner; Visit Provider Nurse Practitioner | DX: E11.65 Type 2 diabetes mellitus with hyperglycemia (principal); Z79.4 Long term (current) use of insulin | CPT/HCPCS: 80053; 80061; 81000; 82043; 83036 ==

== ENCOUNTER 2024-03-16 11:02 | Oncology outpatient (recurring) (ONCR) | payer MEDICARE, MEDICAID, SELFPAY ==
[2024-03-16 11:56] LABS: Basophils % 0.3 %; Eosinophils % 1.3 %; Hematocrit 39.4 % (37-53); Lymphocytes # 1.2 10^3/uL (0.8-4.8); Lymphocytes % 37.3 %; Mean Corpuscular HGB Conc 33.5 g/dL (30-55); Mean Corpuscular Hemoglobin 31.4 pg (27-33); Mean Corpuscular Volume 93.8 fl (82-101); Mean Platelet Volume 11.7 fL (7.4-10.4); Monocytes # 0.4 10^3/uL (0.2-0.9); Monocytes % 12.1 %; Neutrophils # 1.53 10^3/uL (1.8-7.7); Neutrophils % 48.7 %; Nucleated Red Blood Cells % 0 %; Platelet Count 73 10^3/cmm (157-399); Red Cell Distribution Width 13.2 % (12.1-15.1); White Blood Count 3.14 10^3/uL (3.29-11.43)
[2024-03-16 12:21] LABS: Alanine Aminotransferase 17 U/L (0-41); Albumin Level 3.7 g/dL (3.5-5.2); Alkaline Phosphatase 141 U/L (40-130); Anion Gap 10.6 (5-19); Aspartate Amino Transferase 23 U/L (0-40); Blood Urea Nitrogen 15 mg/dL (8-23); Calcium 9.1 mg/dL (8.5-10.5); Carbon Dioxide 30 mmol/L (22-29); Chloride 102 mmol/L (98-107); Glucose 136 mg/dL (65-115); Osmolality Calculated 289 mOsm/kg (285-295); Potassium 4.6 mmol/L (3.5-5.1); Prostate Specific Antigen 0.622 ng/mL (0-4); Sodium 138 mmol/L (136-145); Total Bilirubin 0.7 mg/dL (0.15-1.2); Total Protein 6.7 g/dL (6.6-8.7)
[2024-03-16] MEDS: leuprolide 22.5 mg Kit IM ×2 (14:18→14:21)
== END 2024-03-16 23:59 | disposition home or self-care (01) ==
PROVIDERS: Nurse Practitioner Family; PCP Nurse Practitioner; Visit Provider Internal Medicine Medical Oncology
DX: C61 Malignant neoplasm of prostate (principal); C79.51 Secondary malignant neoplasm of bone; Z79.818 Long term (current) use of other agents affecting estrogen receptors and estrogen levels; Z79.891 Long term (current) use of opiate analgesic; Z79.899 Other long term (current) drug therapy; Z53.9 Procedure and treatment not carried out, unspecified reason; Z51.11 Encounter for antineoplastic chemotherapy; Z92.3 Personal history of irradiation; R26.81 Unsteadiness on feet
CPT/HCPCS: 36415; 80053; 84153; 85025; 96402; 99214; J9217

== ENCOUNTER 2024-04-13 06:00 | Outpatient (RCR) | payer MEDICARE, SELFPAY | END 2024-05-01 23:59 | disposition home or self-care (01) | LOC: TPT 06:00 | PROVIDERS: PCP Nurse Practitioner; Visit Provider Nurse Practitioner Family | DX: R26.81 Unsteadiness on feet (principal) | CPT/HCPCS: 97110; 97162 ==

== ENCOUNTER → 2024-04-19 15:58 | Outpatient (BNVA) | payer MEDICARE, SELFPAY | PROVIDERS: PCP Nurse Practitioner; Visit Provider Nurse Practitioner Family | DX: R10.9 Unspecified abdominal pain (principal); R30.0 Dysuria | CPT/HCPCS: 80053; 81003; 85025; 87086 ==

== ENCOUNTER 2024-04-21 16:12 | Emergency (ER) | payer MEDICARE, SELFPAY ==
[2024-04-21 16:21] VITALS: BP 136/75; PULSE 69; RESP 20; TEMP 36.9; O2SAT 92; BMI 35.6
--- NOTE | 2024-04-21 16:41 | CTR_ITS ---
PROCEDURE INFORMATION: Exam: CT Abdomen And Pelvis With Contrast Exam date and time: 04/21/2024 5:45 PM Age: 74 years old Clinical indication: Other: Hematuria TECHNIQUE: Imaging protocol: Computed tomography of the abdomen and pelvis with contrast. Radiation optimization: All CT scans at this facility use at least one of these dose optimization techniques: automated exposure control; mA and/or kV adjustment per patient size (includes targeted exams where dose is matched to clinical indication); or iterative reconstruction. Contrast material: OMNI 350; Contrast volume: 100 ml; Contrast route: INTRAVENOUS (IV); COMPARISON: CT abdomen pelvis wo/w [id number] 08/08/2020 11:40 AM RADIATION DOSE METRICS: Total DLP (mGy-cm): 1271.21 FINDINGS: Coronary arteries: Coronary arterial atherosclerotic calcifications are present. Liver: Cirrhotic liver with a nodular contour. Gallbladder and bile ducts: Normal. No calcified stones. No ductal dilation. Pancreas: Normal. No ductal dilation. Spleen: The spleen is enlarged measuring up to 16.7 cm in length. Adrenal glands: Normal. No mass. Kidneys and ureters: Status post left nephrectomy. No abnormal soft tissue in the nephrectomy bed. Right simple appearing renal cysts are present which do not need further follow-up, as well as other subcentimeter hypodensities which are too small to adequately characterize. Stomach and bowel: Unremarkable. No obstruction. No mucosal thickening. Appendix: No evidence of appendicitis. Intraperitoneal space: Unremarkable. No free air. No significant fluid collection. Vasculature: Unremarkable. No abdominal aortic aneurysm. Lymph nodes: Unremarkable. No enlarged lymph nodes. Urinary bladder: There is mild bladder wall thickening with adjacent fat stranding anteriorly which is nonspecific but can be seen the setting of cystitis. Reproductive: Unremarkable as visualized. Bones/joints: Unremarkable. No acute fracture. Soft tissues: See Kidneys and ureters finding. CT/CT abdomen pelvis w con* [id number] IMPRESSION: 1. Cirrhotic liver with a nodular contour. 2. Splenomegaly. 3. Right simple appearing renal cysts are present which do not need further follow-up, as well as other subcentimeter hypodensities which are too small to adequately characterize. 4. There is mild bladder wall thickening with adjacent fat stranding anteriorly which is nonspecific but can be seen the setting of cystitis. COMMENTS: Consistent with the [employer]'s Incidental Findings Committee white paper (J Am Jacobo Radiol 2018): Any incidental renal lesion less than 1 cm or classified as too small to characterize, or any incidental cystic renal lesion characterized as simple-appearing, is likely benign. No follow-up imaging is recommended for these lesions per consensus recommendations based on imaging criteria.
[2024-04-21 16:48] LABS: Basophils % 0.2 %; Eosinophils # 0.1 10^3/uL (0.0-0.8); Eosinophils % 1.7 %; Hematocrit 40.9 % (37-53); Lymphocytes # 1.4 10^3/uL (0.8-4.8); Lymphocytes % 33.5 %; Mean Corpuscular HGB Conc 33.3 g/dL (30-55); Mean Corpuscular Hemoglobin 31.3 pg (27-33); Mean Platelet Volume 11.2 fL (7.4-10.4); Monocytes # 0.6 10^3/uL (0.2-0.9); Monocytes % 13.3 %; Neutrophils % 51.1 %; Nucleated Red Blood Cells % 0 %; Platelet Count 76 10^3/cmm (157-399); Red Blood Count 4.35 10^6/uL (3.85-5.65); Red Cell Distribution Width 14.2 % (12.1-15.1); White Blood Count 4.12 10^3/uL (3.29-11.43)
--- NOTE | 2024-04-21 16:51 | ED_ITS ---
HPI - Male Genitourinary 2 General: Chief complaint: Urogenital-Male Stated complaint: [facility] sent--Urinating Blood Time Seen by Provider: 04/21/24 16:41 Source: patient Mode of arrival: ambulatory Limitations: no limitations History of Present Illness: 74-year-old male [facility] he states that he has been having some slight nausea and he has been having red urine he denies any abdominal pain denies any fevers denies any history of kidney issues denies any back or flank pain. Associated symptoms: Reports nausea; Deny dysuria or vomiting Review of Systems 2 Const: Denies: fever(s), chills, body aches or change in appetite ENMT: Denies: throat pain or dental pain Card: Denies: chest pain Resp: Denies: dyspnea GI: Reports: nausea; Denies: abdominal pain, vomiting or diarrhea : Denies: dysuria Musc: Denies: neck pain or back pain Skin/Breast: Denies: rash Neuro: Denies: headache(s) PFSH ED 2 PFSH: Medical History Thrombocytopenia Degenerative joint disease of spine Degenerative arthritis Coronary artery disease Hypertension Medical marijuana use Radiation cystitis Prostate cancer Seasonal allergies Hyperlipidemia, unspecified History of gout Obesity (BMI 30-39.9) Type 2 diabetes mellitus Surgical History Status post ORIF of fracture of ankle Trimalleolar fracture of the right ankle History of colon resection due to diverticulitis with colostomy resection 1986 History of back surgery Lumbar laminectomy for ruptured disc History of shoulder surgery Right shoulder repair History of coronary angioplasty (2004) With stent placement x 2 History of nephrectomy left History of skin graft [place] Family History Brother Heart disease Mother Cancer Father CAD (coronary artery disease) Grandfather CAD (coronary artery disease) Grandmother Dementia Other Diabetes Hyperlipidemia Hypertension Lung disease Respiratory illness Denies family history of Clotting disorder Psychiatric illness Chronic kidney disease (CKD) Suicide Anesthesia complication Bleeding disorder Stroke Social History Smoking and tobacco/nicotine status: never used tobacco/nicotine Quit status (tobacco/nicotine): has quit using Year quit tobacco: 2007 Former quit date comment: 8-10 years chewing tobacco use Second hand smoke exposure: No Alcohol intake: current Alcohol intake frequency: holidays/special occasions only Substance/Drug Use: current Other substance/drug use details: Marijuana Card Adopted: No Caregiver/support person: No Lives independently: Yes Household members: none Marital status: Single service: No Current occupational status: retired Current occupational exposures/hazards: No Do you think of yourself as: Straight/Heterosexual Current gender identity: Male Physical Exam 2 Const: COMMON NORMALS: no acute distress, patient oriented x3 and healthy appearing HENMT: COMMON NORMALS: normocephalic and atraumatic HEAD & SCALP: n ormocephalic and atraumatic Eye: COMMON NORMALS: Equal, round and reactive pupils present and EOMs intact bilaterally PUPIL: Yes Equal, round and reactive pupils present Neck/C-Spine: COMMON NORMALS: full ROM and supple Chest: COMMONS NORMALS: normal inspection of the chest and normal palpation of entire chest wall Resp: COMMON NORMALS: normal respiratory effort, No retractions, No use of accessory muscles and clear to auscultation bilaterally AUSCULTATION: clear to auscultation bilaterally Cardio: COMMON NORMALS: regular rate, regular rhythm and No murmurs present (Cardio) RATE: regular rate RHYTHM: regular rhythm GI: COMMON NORMALS: Normal to inspection, nondistended, normoactive bowel sounds present, Soft to palpation, non-tender and no masses PALPATION: Yes Soft to palpation Extremity: COMMON NORMALS: normal to inspection and full ROM Neuro: COMMON NORMALS: patient oriented x3, moves all extremities and no focal motor deficits Psych: COMMON NORMALS: mental status grossly normal, Normal thought process present and cooperative THOUGHT PROCESS: Normal thought process present Skin: COMMON NORMALS: no rashes or lesions noted and no wounds GENERAL SKIN EXAM: no rashes or lesions noted Course 2 Vital Signs: Vital signs: Vital Signs Temperature 98.4 F 04/21/24 16:21 Pulse Rate 97 04/21/24 19:00 Respiratory Rate 16 04/21/24 19:00 Blood Pressure 149/92 04/21/24 19:00 Pulse Oximetry 92 04/21/24 19:00 Oxygen Delivery Me thod Nasal Cannula 04/21/24 19:00 Oxygen Flow Rate 2 04/21/24 19:00 MDM - Male Medical Decision Making Patient presents here with concerns that he had an elevated bilirubin clinic 2 days ago along with hematuria. His urine here is orange likely from his bilirubin he has no signs of hematuria his bilirubin and liver enzymes are actually much improved from his lab work 2 days ago abdominal exam here is benign CT showed nothing acute beside cirrhosis he has no signs of choledocholithiasis or ascending cholangitis I feel he stable for discharge informed he has had his labs rechecked by his PCP next week return if worsening he understands agrees plan. Medical Records I reviewed the patient's medical records. Lab Data I reviewed the patient's lab results. 04/21/24 16:41 04/21/24 16:41 Radiology Impressions Abdomen/Pelvis CT 04/21/24 16:41 IMPRESSION: 1. Cirrhotic liver with a nodular contour. 2. Splenomegaly. 3. Right simple appearing renal cysts are present which do not need further follow-up, as well as other subcentimeter hypodensities which are too small to adequately characterize. 4. There is mild bladder wall thickening with adjacent fat stranding anteriorly which is nonspecific but can be seen the setting of cystitis. COMMENTS: Consistent with the [employer]'s Incidental Findings Committee white paper (J Am Jacobo Radiol 2018): Any incidental renal lesion less than 1 cm or classified as too small to characterize, or any incidental cystic renal lesion characterized as simple-appearing, is likely benign. No follow-up imaging is recommended for these lesions per consensus recommendations based on imaging criteria. Gallbladder Ultrasound 04/21/24 17:24 IMPRESSION: 1. No cholelithiasis or cholecystitis. 2. Cirrhotic liver. Laboratory Results WBC 4.12 10^3/uL (3.29-11.43) 04/21/24 16:41 RBC 4.35 10^6/uL (3.85-5.65) 04/21/24 16:41 Hgb 13.60 g/dL (11.27-16.99) 04/21/24 16:41 Hct 40.9 % (37-53) 04/21/24 16:41 MCV 94.0 fl (82-101) 04/21/24 16:41 MCH 31.3 pg (27-33) 04/21/24 16:41 MCHC 33.3 g/dL (30-55) 04/21/24 16:41 RDW 14.2 % (12.1-15.1) 04/21/24 16:41 Plt Count 76 10^3/cmm (157-399) L 04/21/24 16:41 MPV 11.2 fL (7.4-10.4) H 04/21/24 16:41 Neut % (Auto) 51.1 % 04/21/24 16:41 Lymph % (Auto) 33.5 % 04/21/24 16:41 [place] % (Auto) 13.3 % 04/21/24 16:41 Eos % (Auto) 1.7 % 04/21/24 16:41 Baso % (Auto) 0.2 % 04/21/24 16:41 Neut # (Auto) 2.10 10^3/uL (1.8-7.7) 04/21/24 16:41 Lymph # (Auto) 1.4 10^3/uL (0.8-4.8) 04/21/24 16:41 [place] # (Auto) 0.6 10^3/uL (0.2-0.9) 04/21/24 16:41 Eos # (Auto) 0.1 10^3/uL (0.0-0.8) 04/21/24 16:41 Baso # (Auto) 0.0 10^3/uL (0.0-0.1) 04/21/24 16:41 Nucleated RBC % (auto) 0 % 04/21/24 16:41 Nucleated RBCs # 0.0 /100WBC 04/21/24 16:41 PT 12.80 SECONDS (12.1-14.9) 04/21/24 16:41 INR 0.93 (0.8-1.2) 04/21/24 16:41 Sodium 141 mmol/L (136-145) 04/21/24 16:41 Potassium 4.1 mmol/L (3.5-5.1) 04/21/24 16:41 Chloride 103 mmol/L (98-107) 04/21/24 16:41 Carbon Dioxide 27 mmol/L (22-29) 04/21/24 16:41 Anion Gap 15.1 (5-19) 04/21/24 16:41 BUN 21 mg/dL (8-23) 04/21/24 16:41 Creatinine 0.9 mg/dL (0.7-1.2) 04/21/24 16:41 GFR Calculation Not Reportable 04/21/24 16:41 Glucose 131 mg/dL (65-115) H 04/21/24 16:41 Calculated Osmolality 297 mOsm/kg (285-295) H 04/21/24 16:41 Calcium 9.4 mg/dL (8.5-10.5) 04/21/24 16:41 Total Bilirubin 3.0 mg/dL (0.15-1.2) H 04/21/24 16:41 AST 82 U/L (0-40) H 04/21/24 16:41 ALT 175 U/L (0-41) H 04/21/24 16:41 Alkaline Phosphatase 306 U/L (40-130) H 04/21/24 16:41 Total Protein 7.2 g/dL (6.6-8.7) 04/21/24 16:41 Albumin 3.6 g/dL (3.5-5.2) 04/21/24 16:41 Globulin 3.6 g/dL (1.3-4.6) 04/21/24 16:41 Urine Color [place] (Yellow) A 04/21/24 16:50 Urine Appearance Clear (CLEAR) 04/21/24 16:50 Urine pH 6 (5-7) 04/21/24 16:50 Ur Specific [place] 1.020 (1.005-1.030) 04/21/24 16:50 Urine Protein 1+ (Negative) H 04/21/24 16:50 Urine Glucose (UA) Trace (Normal) H 04/21/24 16:50 Urine Ketones Negative (Negative) 04/21/24 16:50 Urine Blood 2+ (Negative) H 04/21/24 16:50 Urine Nitrate Not tested (Negative) A 04/21/24 16:50 Urine Bilirubin 1+ (Negative) H 04/21/24 16:50 Urine Urobilinogen Not tested mg/dL (Negative) A 04/21/24 16:50 Ur Leukocyte Esterase Not tested (Negative) A 04/21/24 16:50 Urine RBC 0-4 /hpf (0-2) H 04/21/24 16:50 Urine WBC None /hpf (0-5) 04/21/24 16:50 Ur Squamous Epith Cells 0-4 /hpf (0-5) H 04/21/24 16:50 Amorphous Sediment Not Reportable 04/21/24 16:50 Urine Bacteria None /hpf (NONE) 04/21/24 16:50 Urine Mucus None /hpf 04/21/24 16:50 All radiology interpretation(s) finalized by discharge Discharge Plan Discharge Patient Disposition: Home Clinical Impression: Cirrhosis, Elevated bilirubin Condition: Stable Prescriptions: No Action albuterol sulfate [Ventolin HFA] 90 mcg/actuation HFA aerosol inhaler 2 puff inhalation Q6H PRN (Reason: shortness of breath or wheezing) Qty: 8.5 0RF Medical Marijuana PO nitroglycerin 0.4 mg tablet, sublingual 0.4 mg sublingual Q5M PRN (Reason: chest pain) Qty: 100 1RF Rx Instructions: do not exceed 3 doses per episode atorvastatin [Lipitor] 40 mg tablet 40 mg PO DAILY Qty: 90 1RF (DME) Accu-Chek Kaley Plus test strp Strip See Rx Instructions .Route Qty: 100 5RF Rx Instructions: use 3 times day cetirizine [Zyrtec] 10 mg tablet 10 mg PO DAILY PRN (Reason: allergy symptoms) Qty: 90 1RF duloxetine [Cymbalta] 30 mg capsule,delayed release(DR/EC) 30 mg PO BID Qty: 180 1RF furosemide 20 mg tablet 20 mg PO EVERY OTHER DAY Qty: 90 1RF insulin degludec [Tresiba FlexTouch U-200] 200 unit/mL (3 mL) insulin pen 60 unit SUBCUT DAILY Qty: 18 5RF insulin lispro [Humalog KwikPen Insulin] 100 unit/mL insulin pen See Rx Instructions SUBCUT TID Qty: 15 2RF Rx Instructions: subcutaneously three times daily; 3-24 SUBCUT three times daily; follow sliding scale isosorbide mononitrate 60 mg tablet extended release 24 hr 60 mg PO BID Qty: 180 1RF lisinopril 10 mg tablet 10 mg PO DAILY Qty: 90 1RF metoprolol tartrate 100 mg tablet 100 mg PO BID Qty: 180 1RF Fish Oil 100-160-1,000 mg capsule 2 cap PO BID Qty: 120 5RF (DME) pen needle, diabetic [BD Ultra-Fine [place] Pen Needle] 32 gauge x 5/32 needle See Rx Instructions .ROUTE .MEDSUPPLY Qty: 200 5RF Rx Instructions: 4 times day semaglutide 0.25 mg or 0.5 mg(2 mg/1.5 mL) pen injector 0.5 mg SUBCUT Q7D Qty: 1.5 5RF tamsulosin 0.4 mg capsule 0.4 mg PO BID Qty: 180 1RF zonisamide [Zonegran] 25 mg capsule 25 mg PO BID Qty: 180 1RF Rx Instructions: L1 lidocaine 5 % ointment 1 applic topical DAILY PRN (Reason: pain) Qty: 50 0RF ondansetron 4 mg tablet,disintegrating 4 mg PO QID PRN (Reason: nausea and vomiting) Qty: 30 0RF (DME) oxygen portable See Rx Instructions .Route .MEDSUPPLY Qty: 1 0RF Rx Instructions: As directed Oxygen 24 hour w/portable 2liters n/c 99 months (DME) blood-glucose meter [Accu-Chek Kaley Plus Meter] Misc See Rx Instructions .Route Qty: 1 0RF Rx Instructions: As directed (DME) lancets [Accu-Chek Softclix Lancets] Misc See Rx Instructions .Route Qty: 200 5RF Rx Instructions: check 3 times day hydrocodone-acetaminophen 5-325 mg tablet 1 tab PO Q4H PRN (Reason: pain) 30 Days Qty: 30 0RF Xtandi 40 mg capsule 80 mg PO DAILY Qty: 60 1RF Discharge Orders: Discharge ED (Routine); Ordered 04/21/24 Ordered By: Refugio Estrada Referrals: Holger Robb, COIN MACHINE SERVICER REPAIRER-C [Primary Care Provider] - 4-7 days Discharge Diet: Advance as tolerated Discharge Activity: Resume usual activity Patient Instructions: Cirrhosis of the Liver (ED) Coding Level of Care Code ED Drying And Winding Supervisor for Fantasma Romero
[2024-04-21 17:02] LABS: INR 0.93 (0.8-1.2)
[2024-04-21 17:08] LABS: Alanine Aminotransferase 175 U/L (0-41); Albumin Level 3.6 g/dL (3.5-5.2); Alkaline Phosphatase 306 U/L (40-130); Anion Gap 15.1 (5-19); Aspartate Amino Transferase 82 U/L (0-40); Blood Urea Nitrogen 21 mg/dL (8-23); Calcium 9.4 mg/dL (8.5-10.5); Carbon Dioxide 27 mmol/L (22-29); Chloride 103 mmol/L (98-107); Creatinine Clr Calc Pharmacy 95.7314; Globulin 3.6 g/dL (1.3-4.6); Glucose 131 mg/dL (65-115); Osmolality Calculated 297 mOsm/kg (285-295); Potassium 4.1 mmol/L (3.5-5.1); Sodium 141 mmol/L (136-145); Total Protein 7.2 g/dL (6.6-8.7)
--- NOTE | 2024-04-21 17:24 | USR_ITS ---
PROCEDURE INFORMATION: Exam: US Abdomen, Limited; Right Upper Quadrant Exam date and time: 04/21/2024 6:03 PM Age: 74 years old Clinical indication: Abdominal pain; Generalized; Patient HX: Abd pain, generalied. TECHNIQUE: Imaging protocol: Real time ultrasound of the abdomen with image documentation. Limited exam focused on the right upper quadrant. COMPARISON: CT abdomen pelvis w con* [id number] 04/21/2024 5:45 PM FINDINGS: Liver: The liver is enlarged measuring up to 18.1 cm in length. The liver parenchyma is moderately echogenic. No masses identified. Gallbladder: Gallbladder wall thickening measuring up to 6 mm. No sonographic Ashley's sign. No stone or sludge in the gallbladder. Biliary ducts: Common bile duct is normal in size measuring 4 mm in diameter. Pancreas: Visualized pancreas is unremarkable. Right kidney: The right kidney measures 13.8 cm in length with no hydronephrosis or renal calculus. Inferior vena cava: The visualized aorta and IVC are unremarkable. US/US gall bladder [id number] IMPRESSION: 1. No cholelithiasis or cholecystitis. 2. Cirrhotic liver.
[2024-04-21 17:48] LABS: Protein Urine 1+ (Negative); Urine Appearance Clear (CLEAR); pH Urine 6 (5-7)
[2024-04-21 17:49] LABS: Bilirubin Urine 1+ (Negative); Blood Urine 2+ (Negative); Glucose Urine UA Trace (Normal); Ketones Urine Negative (Negative)
[2024-04-21] MEDS: iohexol 350 mg/mL 500 mL Btl (per mL) IV (17:50)
[2024-04-21 18:00] VITALS: BP 132/64; PULSE 64; RESP 16; O2SAT 93
[2024-04-21 18:07] LABS: Urine Color Orange (Yellow)
[2024-04-21 18:08] LABS: Nitrate Urine Not Tested (Negative)
[2024-04-21 18:09] LABS: Add Urine Culture? No; Add Urine Microscopic? YES; Leukocyte Esterase Urine Not Tested (Negative); RBC Urine 0-4 /hpf (0-2); Squamous Epithelial Cell Urine 0-4 /hpf (0-5); Urobilinogen Urine Not Tested mg/dL (Negative)
[2024-04-21 19:00] VITALS: BP 149/92; PULSE 97; RESP 16; O2SAT 92
[2024-04-21 19:27] VITALS: BP 146/89; PULSE 92; RESP 16; TEMP 36.9; O2SAT 94
[2024-04-21 22:22] LABS: Hepatitis A Antibody IgM Non-Reactive (Nonreactive); Hepatitis B Core AB, Total Non-Reactive (Nonreactive); Hepatitis B Surface AB 11.3 (11.5-1000); Hepatitis B Surface Antigen Non-Reactive (Nonreactive); Hepatitis C Virus Antibody Non-Reactive (Nonreactive)
== END 2024-04-21 19:29 | disposition home or self-care (01) ==
PROVIDERS: Emergency Provider Emergency Medicine; PCP Nurse Practitioner
DX: K74.60 Unspecified cirrhosis of liver (principal); Z79.4 Long term (current) use of insulin; Z79.85 Long-term (current) use of injectable non-insulin antidiabetic drugs; Z87.891 Personal history of nicotine dependence; I25.10 Atherosclerotic heart disease of native coronary artery without angina pectoris; I10 Essential (primary) hypertension; Z85.46 Personal history of malignant neoplasm of prostate; E78.5 Hyperlipidemia, unspecified; E11.9 Type 2 diabetes mellitus without complications; Z95.5 Presence of coronary angioplasty implant and graft
CPT/HCPCS: 74177; 76705; 80053; 81001; 85025; 85610; 86705; 86706; 86709; 86803; 87340; 99285; Q9967

== ENCOUNTER 2024-05-02 06:00 | Outpatient (RCR) | payer MEDICARE, SELFPAY | END 2024-06-01 23:59 | disposition home or self-care (01) | LOC: TPT 06:00 | PROVIDERS: PCP Nurse Practitioner; Visit Provider Nurse Practitioner Family | DX: R26.81 Unsteadiness on feet (principal) | CPT/HCPCS: 97110 ==

== ENCOUNTER 2024-06-16 12:54 | Oncology outpatient (recurring) (ONCR) | payer MEDICARE, SELFPAY ==
--- NOTE | 2024-06-01 13:45 | MR_ITS ---
WS: [id number] MRI BRAIN WITHOUT CONTRAST HISTORY: R51.9 - Headache, unspecified COMPARISON: None available. TECHNIQUE: Diffusion imaging, multiplanar T1, T2 and FLAIR imaging obtained. No evidence for acute infarct or hemorrhage. Sow-white matter differentiation is normal. No remote or acute infarcts are volume loss. Moderate symmetric atrophy. Very minimal small vessel ischemic disease. No prior large territory infa rct. No lacunar infarct. Mild cerebellar atrophy. No significant hippocampal atrophy. Normal flow voi ds. No inferior displacement of cerebellar tonsils. The sella turcica and pituitary gland are unremarkabl e. Dural venous sinuses and tetlin of Mccurdy demonstrate no abnormality on this unenhanced studies. Paranasal sinuses: Clear. Mastoid air cells: RIGHT mastoid air cell effusion. Calvarium and scalp: Intact. MR/MR head wo con* [id number] IMPRESSION: 1. No acute infarct or hemorrhage. 2. Moderate symmetric atrophy with minimal small vessel ischemic disease. No p rior infarct. 3. No significant hippocampal atrophy.
[2024-06-16 13:24] LABS: Basophils % 0.5 %; Eosinophils % 1.1 %; Hematocrit 41.7 % (37-53); Lymphocytes # 1.4 10^3/uL (0.8-4.8); Lymphocytes % 37.8 %; Mean Corpuscular HGB Conc 33.1 g/dL (30-55); Mean Corpuscular Hemoglobin 30.7 pg (27-33); Mean Corpuscular Volume 92.7 fl (82-101); Mean Platelet Volume 10.9 fL (7.4-10.4); Monocytes # 0.4 10^3/uL (0.2-0.9); Monocytes % 12.1 %; Neutrophils # 1.77 10^3/uL (1.8-7.7); Neutrophils % 48.5 %; Nucleated Red Blood Cells % 0 %; Platelet Count 71 10^3/cmm (157-399); Red Cell Distribution Width 13.1 % (12.1-15.1); White Blood Count 3.65 10^3/uL (3.29-11.43)
[2024-06-16 13:54] LABS: Alanine Aminotransferase 18 U/L (0-41); Albumin Level 3.8 g/dL (3.5-5.2); Alkaline Phosphatase 139 U/L (40-130); Anion Gap 16.8 (5-19); Aspartate Amino Transferase 21 U/L (0-40); Blood Urea Nitrogen 19 mg/dL (8-23); Calcium 9.4 mg/dL (8.5-10.5); Carbon Dioxide 23 mmol/L (22-29); Chloride 105 mmol/L (98-107); Creatinine Clr Calc Pharmacy 106.9671; Glucose 140 mg/dL (65-115); Osmolality Calculated 295 mOsm/kg (285-295); Potassium 4.8 mmol/L (3.5-5.1); Prostate Specific Antigen 0.617 ng/mL (0-4); Sodium 140 mmol/L (136-145); Total Bilirubin 0.6 mg/dL (0.15-1.2); Total Protein 6.8 g/dL (6.6-8.7)
[2024-06-16] MEDS: leuprolide 22.5 mg Kit IM (14:45)
== END 2024-06-16 23:59 | disposition home or self-care (01) ==
PROVIDERS: Nurse Practitioner Family; PCP Nurse Practitioner; Visit Provider Internal Medicine Medical Oncology
DX: C79.51 Secondary malignant neoplasm of bone; Z79.818 Long term (current) use of other agents affecting estrogen receptors and estrogen levels; Z79.899 Other long term (current) drug therapy; Z53.9 Procedure and treatment not carried out, unspecified reason; Z51.11 Encounter for antineoplastic chemotherapy; C61 Malignant neoplasm of prostate; Z92.3 Personal history of irradiation
CPT/HCPCS: 70551; 80053; 84153; 85025; 96402; 99214; J9217

== ENCOUNTER → 2025-01-03 10:53 | Outpatient (BNVA) | payer MEDICARE, SELFPAY | PROVIDERS: PCP Nurse Practitioner; Visit Provider Nurse Practitioner | DX: E11.9 Type 2 diabetes mellitus without complications (principal) | CPT/HCPCS: 80053; 80061; 83036; 85025 ==

== ENCOUNTER 2025-03-02 10:55 | Oncology outpatient (recurring) (ONCR) | payer OTHER, SELFPAY ==
[2025-03-02 11:20] LABS: Basophils % 0.3 %; Eosinophils # 0.1 10^3/uL (0.0-0.8); Eosinophils % 1.6 %; Hematocrit 40.1 % (37-53); Lymphocytes % 31.2 %; Mean Corpuscular HGB Conc 32.9 g/dL (30-55); Mean Corpuscular Hemoglobin 31.1 pg (27-33); Mean Corpuscular Volume 94.6 fl (82-101); Mean Platelet Volume 10.8 fL (7.4-10.4); Monocytes # 0.4 10^3/uL (0.2-0.9); Neutrophils # 1.74 10^3/uL (1.8-7.7); Neutrophils % 54.9 %; Nucleated Red Blood Cells % 0 %; Platelet Count 65 10^3/cmm (157-399); Red Blood Count 4.24 10^6/uL (3.85-5.65); Red Cell Distribution Width 13.2 % (12.1-15.1); White Blood Count 3.17 10^3/uL (3.29-11.43)
[2025-03-02 11:44] LABS: Alanine Aminotransferase 17 U/L (0-41); Albumin Level 3.5 g/dL (3.5-5.2); Alkaline Phosphatase 155 U/L (40-130); Anion Gap 12.7 (5-19); Aspartate Amino Transferase 25 U/L (0-40); Blood Urea Nitrogen 13 mg/dL (8-23); Calcium 9.3 mg/dL (8.5-10.5); Carbon Dioxide 27 mmol/L (22-29); Chloride 105 mmol/L (98-107); Creatinine Clr Calc Pharmacy 105.2214; Globulin 3.3 g/dL (1.3-4.6); Glucose 125 mg/dL (65-115); Osmolality Calculated 292 mOsm/kg (285-295); Potassium 4.7 mmol/L (3.5-5.1); Sodium 140 mmol/L (136-145); Testosterone Total 31.8 ng/dL (193-740); Total Protein 6.8 g/dL (6.6-8.7)
[2025-03-02] MEDS: leuprolide 22.5 mg Kit IM (13:44)
== END 2025-04-01 23:59 | disposition home or self-care (01) ==
PROVIDERS: Nurse Practitioner Family; PCP Nurse Practitioner; Visit Provider Internal Medicine
DX: Z51.11 Encounter for antineoplastic chemotherapy (principal); Z79.818 Long term (current) use of other agents affecting estrogen receptors and estrogen levels; C61 Malignant neoplasm of prostate; R39.11 Hesitancy of micturition; F12.90 Cannabis use, unspecified, uncomplicated; R03.0 Elevated blood-pressure reading, without diagnosis of hypertension; Z79.899 Other long term (current) drug therapy
CPT/HCPCS: 36415; 80053; 84153; 84403; 85025; 96402; 99214; J9217

== ENCOUNTER 2025-05-25 10:59 | Oncology outpatient (recurring) (ONCR) | payer OTHER, SELFPAY ==
[2025-05-25 11:41] LABS: Hematocrit 39.2 % (37-53); Hemoglobin 12.80 g/dL (11.27-16.99); Mean Corpuscular HGB Conc 32.7 g/dL (30-55); Mean Corpuscular Hemoglobin 30.8 pg (27-33); Mean Corpuscular Volume 94.2 fl (82-101); Nucleated Red Blood Cells % 0 %; Platelet Count 68 10^3/cmm (157-399); Red Blood Count 4.16 10^6/uL (3.85-5.65); White Blood Count 3.33 10^3/uL (3.29-11.43)
[2025-05-25 12:11] LABS: Alanine Aminotransferase 22 U/L (0-41); Albumin Level 3.6 g/dL (3.5-5.2); Alkaline Phosphatase 146 U/L (40-130); Anion Gap 14.1 (5-19); Aspartate Amino Transferase 30 U/L (0-40); Blood Urea Nitrogen 23 mg/dL (8-23); Calcium 9.5 mg/dL (8.5-10.5); Carbon Dioxide 29 mmol/L (22-29); Chloride 103 mmol/L (98-107); Globulin 3.0 g/dL (1.3-4.6); Glucose 122 mg/dL (65-115); Osmolality Calculated 297 mOsm/kg (285-295); Potassium 5.1 mmol/L (3.5-5.1); Prostate Specific Antigen 0.626 ng/mL (0-4); Sodium 141 mmol/L (136-145); Total Protein 6.6 g/dL (6.6-8.7)
[2025-05-25] MEDS: leuprolide 22.5 mg Kit IM (15:11)
== END 2025-06-01 23:59 | disposition home or self-care (01) ==
PROVIDERS: Nurse Practitioner Family; PCP Nurse Practitioner; Visit Provider Internal Medicine
DX: Z51.11 Encounter for antineoplastic chemotherapy (principal); C61 Malignant neoplasm of prostate; C79.51 Secondary malignant neoplasm of bone; F12.90 Cannabis use, unspecified, uncomplicated; R19.7 Diarrhea, unspecified; D69.6 Thrombocytopenia, unspecified; Z79.818 Long term (current) use of other agents affecting estrogen receptors and estrogen levels; Z87.891 Personal history of nicotine dependence; Z79.899 Other long term (current) drug therapy; Z92.3 Personal history of irradiation
CPT/HCPCS: 36415; 80053; 84153; 84403; 85025; 96402; 99213; J9217

== ENCOUNTER → 2025-06-27 10:59 | Outpatient (BNVA) | payer MEDICARE, SELFPAY | PROVIDERS: PCP Nurse Practitioner; Visit Provider Nurse Practitioner | DX: E11.9 Type 2 diabetes mellitus without complications (principal) | CPT/HCPCS: 80061; 82607; 83036 ==

== ENCOUNTER 2025-08-17 11:01 | Oncology outpatient (recurring) (ONCR) | payer MEDICARE, SELFPAY ==
[2025-08-17 11:28] LABS: Hematocrit 40.2 % (37-53); Hemoglobin 13.20 g/dL (11.27-16.99); Mean Corpuscular HGB Conc 32.8 g/dL (30-55); Mean Corpuscular Hemoglobin 30.9 pg (27-33); Mean Corpuscular Volume 94.1 fl (82-101); Nucleated Red Blood Cells % 0 %; Platelet Count 64 10^3/cmm (157-399); Red Blood Count 4.27 10^6/uL (3.85-5.65); White Blood Count 3.54 10^3/uL (3.29-11.43)
[2025-08-17 11:52] LABS: Alanine Aminotransferase 20 U/L (0-41); Albumin Level 3.6 g/dL (3.5-5.2); Alkaline Phosphatase 134 U/L (40-130); Anion Gap 13.2 (5-19); Aspartate Amino Transferase 27 U/L (0-40); Blood Urea Nitrogen 14 mg/dL (8-23); Calcium 9.7 mg/dL (8.5-10.5); Carbon Dioxide 30 mmol/L (22-29); Chloride 104 mmol/L (98-107); Creatinine Clr Calc Pharmacy 105.8785; Globulin 2.9 g/dL (1.3-4.6); Glucose 99 mg/dL (65-115); Osmolality Calculated 295 mOsm/kg (285-295); Potassium 5.2 mmol/L (3.5-5.1); Prostate Specific Antigen 0.754 ng/mL (0-4); Sodium 142 mmol/L (136-145); Total Protein 6.5 g/dL (6.6-8.7)
[2025-08-17] MEDS: leuprolide 22.5 mg Kit IM (13:41)
[2025-08-17 14:01] LABS: Estmated Average Glucose 120; Hemoglobin A1C 5.8 % (4.0-6.0)
== END 2025-09-01 23:59 | disposition home or self-care (01) ==
LOC: ONCMED 11:02
PROVIDERS: Nurse Practitioner; PCP Nurse Practitioner; Visit Provider Internal Medicine
DX: Z51.11 Encounter for antineoplastic chemotherapy (principal); C61 Malignant neoplasm of prostate; C79.51 Secondary malignant neoplasm of bone; Z79.818 Long term (current) use of other agents affecting estrogen receptors and estrogen levels; E11.65 Type 2 diabetes mellitus with hyperglycemia; R39.11 Hesitancy of micturition; F17.290 Nicotine dependence, other tobacco product, uncomplicated; D69.6 Thrombocytopenia, unspecified; Z79.899 Other long term (current) drug therapy
CPT/HCPCS: 36415; 80053; 83036; 84153; 85025; 96402; 99214; J9217

== ENCOUNTER → 2025-10-13 11:25 | Outpatient (BNVA) | payer MEDICARE, SELFPAY | PROVIDERS: PCP Nurse Practitioner; Visit Provider Clinical Nurse Specialist Adult Health | DX: R30.0 Dysuria (principal); N30.01 Acute cystitis with hematuria | CPT/HCPCS: 81000; 87086 ==